=== PATIENT | female | born 1960 | race Caucasian/White ===

== ENCOUNTER 2024-11-28 15:15 | Inpatient (IN) | payer MEDICARE, SELFPAY ==
--- NOTE | 2024-11-28 15:15 | RT.EKG_ITS ---
APPROVED REPORT Exam: Resting ECG Reason for Exam: aphagia Patient Location: E HR:57 bpm ECG Measurements Heart Rate 57 AXIS [place] 123 P 50 QRSd 93 QRS -61 QT 431 T 71 QTc 419 Conclusion Sinus bradycardia, rate 57 No interval abnormalities No STEMI
[2024-11-28 15:16] VITALS: BP 147/83; PULSE 60; RESP 16; TEMP 36.5; O2SAT 97
--- NOTE | 2024-11-28 15:45 | DI.CT_ITS ---
Exam(s) CT THORACIC LUMBAR SPINE WO EXAM: CT THORACIC LUMBAR SPINE WO CLINICAL HISTORY: Back pain, eval fractures. TECHNIQUE: Imaging Protocol: Axial computed tomography images with coronal and sagittal reformatted images were created and reviewed. COMPARISON: No exams were available for comparison FINDINGS: Bones: No fractures or dislocations are seen. The alignment of the spine is normal including the cerv icothoracic junction and the thoracolumbar junction. There is L5 spondylolysis and grade 1 spondylol isthesis of L5 on S1. Soft tissues: The soft tissues are unremarkable. No large disk herniations are identified. Atheroscle rotic calcification is seen of the is abdominal aorta. IMPRESSION: No acute fracture or subluxation in the thoracic or lumbar spine. RADIATION DOSE DELIVERED: 1,141.91mGy.cm Total DLP DATA REPOSITORY: All CT scans at this facility are submitted to the National Radiology Data Registry (NRDR) Dose Index Registry (DIR) with the [employer] (ACR). RADIATION OPTIMIZATION: All CT scans at this facility use at least one of these dose optimization te chniques: automated exposure control; mA and/or kV adjustment per patient size (includes targeted exa ms where dose is matched to clinical indication); or iterative reconstruction.
--- NOTE | 2024-11-28 15:51 | ED.GENADUL_ITS ---
Discharge Plan Discharge Details Chief Complaint: GenMedical Primary Care Provider: Unknown,Unknown ED Provider: Adrienne Hilton Home Meds and New Rx's Prescriptions: No Action metoprolol succinate 25 mg tablet extended release 24 hr 25 mg PO BID Patient Comments: 1/2 Tab twice a day Eliquis 5 mg tablet 5 mg PO BID esomeprazole magnesium [Nexium] 40 mg capsule,delayed release(DR/EC) 40 mg PO DAILY atorvastatin 10 mg tablet 10 mg PO DAILY alprazolam 0.25 mg tablet 0.25 mg PO BID cholecalciferol (vitamin D3) [Vitamin D3] 125 mcg (5,000 unit) tablet 5,000 unit PO ONCE cyanocobalamin (vitamin B-12) [Vitamin B-12] 1,000 mcg tablet 1,000 mcg PO DAILY calcium citrate 200 mg (950 mg) tablet 200 mg PO DAILY coenzyme Q10 [Co Q-10] 10 mg capsule 10 mg PO ONCE silvestre (Zingiber officinalis) 250 mg capsule 250 mg PO DAILY albuterol 90 mcg/actuation aerosol inhalation PRN fexofenadine [Carlyn Allergy] 60 mg tablet 60 mg PO ONCE HPI General Mode of arrival: ambulatory . Date/Time Provider Initiated Documentation: 11/28/24 15:21 . Limitations to Documentation: no limitations . Information obtained by: patient, family and old records reviewed . HPI Narrative: HPI: This is a 64-year-old female patient with a past medical history significant for atrial fibrillation on Eliquis, history of remote DVT, hypertension, osteoporosis, who recently moved here from [place] who is presenting for evaluation of several weeks of progressively worsening right arm and leg numbness. The patient reports that initially it was just her hand and her foot that went numb, states that she thought that she pinched a nerve due to moving all of her belongings. She reports that she has not sustained any specific falls or injuries, but definitely has been lifting and exerting herself more than typical. Over the last 7 to 8 days she has noted gradually worsening numbness, which spread up her arm and leg into her shoulder and hip. She reports that she has been trying to manage the symptoms with stretching, does have some discomfort located in the center of her mid back, has not noted any fevers or illness. She reports intermittent dull headache, has some baseline dry eye and eyestrain type vision changes that have not changed in the last several weeks. Endorses baseline hearing dysfunction of the left ear, no acute changes to the right ear. The patient has no personal history of heart attack, stroke. Exam: Gen: awake and alert, in no apparent distress. Appears well nourished. HEENT: PERRL, EOMs full and without nystagmus. External ears and nose normal, mucous membranes moist. Neck: Supple, full range of motion, no observable masses Lungs: No increased work of breathing, lung sounds clear and equal bilaterally without wheezes, rhonchi, or rales. CV: Heart with regular rate and rhythm, no murmurs auscultated. Strong and symmetrical radial pulses. Abdomen: Soft, nondistended, non-tended to palpation. No rigidity, rebound tenderness, or guarding. MSK: No joint swelling, no redness. Full ROM without limitation, no external traumatic findings. Skin: No rashes or lesions to visualized skin. Normal color, warm, and dry. Neuro: Cranial nerves II-XII intact and symmetrical bilaterally with the exception of some change in sensation perception to the V1 and V2 distribution without full sensory loss. 5/5 strength in all muscle groups x4 extremities. Tingling and decreased sensation to the right upper and right lower extremity. Romberg negative. Ambulates with steady gait. Psych: Appropriate for situation. MDM: This is a 64-year-old female patient presenting for evaluation of right sided numbness for the last several weeks. My differential includes but is not limited to stroke, intracranial hemorrhage, vascular dissection or aneurysm, compression fracture of the spine, spinal nerve root compression. Considered metabolic and electrolyte derangements, kidney injury and liver disease. The patient's EKG shows that she is currently in a normal sinus rhythm with a rate of 57, with no evidence for ischemia. The patient is well outside of the window for activation as a stroke alert, and furthermore does not meet criteria for tPA administration given her Eliquis use. We will proceed with CTA of the head and neck to evaluate for neurologic or vascular abnormalities, as well as a CT of her T and L-spine to evaluate for f racture. I will obtain laboratory studies to include CBC, CMP, magnesium, troponin, and INR. ED Course: I independently interpreted the laboratory studies, which show no significant leukocytosis, anemia, or thrombocytopenia. The chemistry panel is without evidence of electrolyte abnormality, kidney dysfunction, or liver injury. INR 1.0, troponin negative. Independently reviewed the patient's CT imaging and discussed the findings with the radiologist. She has a 2 cm mass at the level of the left cerebellar tentorium, with associated mass effect. Radiologist reports that this is likely a meningioma, but cannot confirm that it is extra-axial without MRI. She has no evidence for infarct, vascular abnormality, anterior CT of her back shows no compression fractures or other abnormality. These findings were shared with the patient, and I discussed the case with [facility] neurosurgery. They recommend transfer to their facility for further workup and management. [facility], [facility] and so she will be admitted to our hospitalist service and transferred in the morning. I provided her with a initial 10 mg Decadron dose, and obtained a chest abdomen pelvis CT for malignancy workup. Neurosurgery recommended holding her Eliquis, which I feel was a low risk intervention given that she is not currently in atrial fibrillation. The patient remained hemodynamically appropriate was transferred to the hospitalist care without incident. Adrienne Hilton MD Related Data Home Medications ?Medication ?Instructions ?Recorded ?Confirmed albuterol 90 mcg/actuation aerosol mcg inhalation PRN 11/28/24 inhaler alprazolam 0.25 mg tablet 0.25 mg PO BID 11/28/24 11/28/24 apixaban 5 mg tablet (Eliquis) 5 mg PO BID 11/28/24 11/28/24 atorvastatin 10 mg tablet 10 mg PO DAILY 11/28/24 11/28/24 calcium citrate 200 mg PO DAILY 11/28/24 11/28/24 cholecalciferol (vitamin D3) 125 5,000 unit PO ONCE 11/28/24 11/28/24 mcg (5,000 unit) tablet (Vitamin D3) coenzyme Q10 10 mg capsule (Co 10 mg PO ONCE 11/28/24 11/28/24 Q-10) cyanocobalamin (vitamin B-12) 1,000 mcg PO DAILY 11/28/24 11/28/24 1,000 mcg tablet (Vitamin B-12) esomeprazole magnesium 40 mg 40 mg PO DAILY 11/28/24 11/28/24 capsule,delayed release (Nexium) fexofenadine 60 mg tablet (Carlyn 60 mg PO ONCE 11/28/24 11/28/24 Allergy) silvestre (Zingiber officinalis) 250 250 mg PO DAILY 11/28/24 11/28/24 mg capsule metoprolol succinate 25 mg 25 mg PO BID 11/28/24 11/28/24 tablet,extended release 24 hr Allergies Allergy/AdvReac Type Severity Reaction Status Date / Time morphine AdvReac Intermediate Other (See Verified 11/28/24 16:23 Comment) penicillin V (From Pen-Vee K) AdvReac Intermediate Other (See Verified 11/28/24 16:23 Comment) General Stated Complaint: GenMedical BAKARI: 3 Course Vital Signs Vital signs: Vital Signs Temperature 36.5 C 11/28/24 15:16 Pulse 60 11/28/24 15:16 Respiratory Rate 16 11/28/24 15:16 Blood Pressure 147/83 H 11/28/24 15:16 Pulse Oximetry 97 11/28/24 15:16 Temperature 36.5 C 11/28/24 15:16 Temperature Source Oral 11/28/24 15:16 Pulse 60 11/28/24 15:16 Respiratory Rate 16 11/28/24 15:16 Blood Pressure 147/83 H 11/28/24 15:16 Blood Pressure Position Sitting 11/28/24 15:16 Pulse Oximetry 97 11/28/24 15:16 Oxygen Delivery Method Room Air 11/28/24 15:16 Oxygen Flow Rate 0 11/28/24 15:16 Pain Level 5 11/28/24 15:16 Medical Decision Making Quality:SDOH Health Related Social Needs: No Data to Display PFSH Social History Smoking/Tobacco Use Status: Current-Occasional Tobacco Type: cigarettes Smoking risk assessment performed?: Yes Substance use type: does not use Housing: house
[2024-11-28 16:08] LABS: Abs Immature Grans 0.02 10^3/uL (0.0-0.06); Absolute Basophil Count 0.04 10^3/uL (0.0-0.2); Absolute Eosinophil Count 0.25 10^3/uL (0.0-0.7); Absolute Lymphocyte Count 3.41 10^3/uL (1.2-3.4); Absolute Monocyte Count 0.68 10^3/uL (0.1-0.8); Absolute Neutrophil Count 4.22 10^3/uL (1.2-6.7); Basophils % 0.5 %; Eosinophils % 2.9 %; HCT 43.5 % (36.0-46.0); HGB 14.4 g/dL (11.2-15.7); Immature Grans % 0.2 %; Lymphocytes % 39.6 %; MCH 29.4 pg (27.0-33.0); MCHC 33.1 % (32.0-36.0); MCV 89 fL (80-95); MPV 10.8 fL (8.0-11.0); Monocytes % 7.9 %; Neutrophils % 48.9 %; Platelet Count 277 10^3/uL (130-400); RDW 13.3 % (11.7-14.6); RDW-SD 43.6 fL; WBC 8.62 10^3/uL (4.4-10.8)
[2024-11-28 16:21] LABS: Prothrombin Time 10.5 sec (9.1-11.1)
[2024-11-28 16:29] LABS: ALT 25 U/L (14-59); AST 17 U/L (15-37); Albumin 3.9 g/dL (3.4-5.0); Alkaline Phosphatase 85 U/L (46-116); Anion Gap 7.2 mmol/L (3-11); BUN 17 mg/dL (7-18); Bilirubin, Total 0.24 mg/dL (0.2-1.0); CO2 29.8 mmol/L (21.0-32.0); CREATININE 1.2 mg/dL (0.55-1.02); Calcium 9.9 mg/dL (8.5-10.1); Chloride 107 mmol/L (98-107); Estimated GFR 49.92 (mL/min/1.73m2); Glucose 101 mg/dL (74-106); Potassium 4.1 mmol/L (3.5-5.1); Sodium 144 mmol/L (136-145); Total Protein 7.3 g/dL (6.4-8.2); Troponin I 7 ng/L (<or=51)
[2024-11-28 17:22] LABS: Troponin I 6 ng/L (<or=51)
[2024-11-28] MEDS: Normal Saline - Diluent 50 ML VIAL IJ ×2 (17:24→20:33)
[2024-11-28] MEDS: Omnipaque 350 MG/ML 100 ML BTL 70 ML IJ ×2 (17:28→20:34)
--- NOTE | 2024-11-28 17:48 | DI.CT_ITS ---
Exam(s) CT BRAIN NECK CTA EXAM: CT BRAIN NECK CTA CLINICAL HISTORY: R. arm and leg numbness x 2 weeks. TECHNIQUE: Imaging Protocol: Axial CT angiography was performed with multi-slice acquisition and mu lti-planar and/or 3D reconstructions. CONTRAST MATERIAL: Intravenous: Omnipaque 350 contrast volume:100 mL COMPARISON: There are no priors for comparison. FINDINGS: CT Head W/O and W: Ventricles and Extra axial spaces: Normal in size and morphology for the patient's age. Hemorrhage: None. Cerebral parenchyma: There is a hyperdense mass seen on the noncontrast examination along the right a spect of the midbrain and micah. There is a mass effect associated with this lesion on the micah. It is medially jet adjacent to the tentorium cerebelli. Following contrast administration there is near ly homogeneous enhancement of the mass. It is well-circumscribed. It measures 2.0 transverse by 2.2 cm AP by 2.4 cm cranio caudally. Primary diagnostic concern is for meningioma. But based on its ap pearance an intra-axial mass should be excluded. MRI is recommended for further evaluation. Midline shift: There is mild arm some mass effect on the cerebral aqueduct which does appear to be sl ightly displaced to the right. Brainstem/Cerebellum: Normal. Calvarium: Normal. Visualized Paranasal sinuses/Mastoids: Clear. Soft Tissues: Unremarkable. Enhancement: Please see the above discussion under cerebral parenchyma. CTA Neck W: Common Carotid: Right: No dissection, occlusion or significant stenosis. Left: No dissection, occlusion or significant stenosis. External Carotid: Right: No occlusion or significant stenosis. Left: No occlusion or significant stenosis. Internal Carotid: Right: No dissection, occlusion or significant stenosis. Left: No dissection, occlusion or significant stenosis. Vertebral Artery: Right: No dissection, occlusion or significant stenosis. Left: No dissection, occlusion or significant stenosis. Lung Apices: Mild emphysematous changes are seen in the lung apices. Bones: Within normal limits for the patient's age. Soft Tissues: Normal. Thyroid gland: Unremarkable. CTA Brain W: Internal Carotid Arteries: No evidence of aneurysm, occlusion or significant stenosis. Anterior Cerebral Arteries: Right: No aneurysm, occlusion or significant stenosis. Left: No aneurysm, occlusion or significant stenosis. Middle Cerebral Arteries: Right: No aneurysm, occlusion or significant stenosis. Left: No aneurysm, occlusion or significant stenosis. Posterior Cerebral Arteries: Right: No aneurysm, occlusion or significant stenosis. Left: No aneurysm, occlusion or significant stenosis. Vertebral Arteries: Right: No aneurysm, occlusion or significant stenosis. Left: No aneurysm, occlusion or significant stenosis. Basilar Artery: No aneurysm, occlusion or significant stenosis. IMPRESSION: 1. No large vessel occlusion or significant stenosis on the CT angiography of the head. 2. No acute intracranial process. 3. 2.0 x 2.2 x 2.4 cm hyperdense enhancing mass at the level of the left tentorium cerebelli. The ma sses well-circumscribed enhances. 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 An MR I, however, is recommended to exclude an intra-axial mass. 4. No occlusion or significant stenosis on the CT angiography of the neck. 5. Findings were discussed with Dr. Leigh at 6:10 p.m. on 11/28/2024. RADIATION DOSE DELIVERED: 1,908.92mGy.cm Total DLP DATA REPOSITORY: All CT scans at this facility are submitted to the National Radiology Data Registry (NRDR) Dose Index Registry (DIR) with the [employer] (ACR). RADIATION OPTIMIZATION: All CT scans at this facility use at least one of these dose optimization te chniques: automated exposure control; mA and/or kV adjustment per patient size (includes targeted exa ms where dose is matched to clinical indication); or iterative reconstruction.
[2024-11-28] MEDS: Dexamethasone 10 MG/ML VIAL IVP (19:35)
[2024-11-28 19:45] VITALS: BP 134/75; PULSE 60; RESP 16; O2SAT 100
--- NOTE | 2024-11-28 20:33 | DI.CT_ITS ---
Exam(s) CT CHEST/ABD/PEL W EXAM: CT CHEST/ABD/PEL W CLINICAL HISTORY: Malignancy eval, new brain mass identified. TECHNIQUE: Imaging Protocol: Axial computed tomography images with coronal and sagittal reformatted images were created and reviewed. Computer aided detection (CAD) was utilized. CONTRAST MATERIAL: Intravenous: Omnipaque 350 Contrast volume:100 ml Oral: no COMPARISON: No exams were available for comparison FINDINGS: CHEST: Tracheobronchial tree: Patent. Pulmonary parenchyma: No consolidation or dominant measurable mass. Minimal emphysematous changes no chel at the lung apices. 5 millimeter nodule anteromedial left lower lobe. Lungs are otherwise clear . Pleura: No effusion or pneumothorax. Mediastinum: Abnormally enlarged subcarinal lymph node measuring 1.6 x 2.1 cm. There is also a left superior hilar lymph node measuring 1.6 cm. Left inferior hilar lymph node measuring 1.3 x 1.8 cm Aorta: Thoracic portion non-dilated. Pulmonary arteries: No visible emboli. Heart: No pericardial effusion. Bones: Unremarkable for age. No lytic or blastic lesions.No compression fractures. Soft tissues: Unremarkable. ABDOMEN and PELVIS: Liver: Normal density. Tiny cyst. No suspicious mass. Gallbladder and biliary tract: No evidence of stones or wall thickening. No biliary dilatation. Pancreas: Normal density, no abnormal calcifications or inflammatory process. Spleen: Splenic cyst. Spleen is normal in size. Kidneys: Normal size, contour and axis. No radiodense stones. No obstructive uropathy. Right renal cysts. No suspicious masses seen. Adrenal glands: No masses seen. Aorta: Abdominal portion non-dilated. Lymph nodes: Within normal limits. Soft tissues: Unremarkable. Bladder: Unremarkable. Filled with contrast material. Bowel: No obstruction or bowel wall thickening. The appendix is normal. There is increased stool in the rectum. Moderate quantity of stool elsewhere. Peritoneal cavity: No ascites. No focal collection. No mesenteric inflammatory response. No free ai r. Bones: Transitional type vertebral body at the lumbosacral junction, with sacralization of L5. Bilat eral L4 pars defects are again noted with mild anterolisthesis. No suspicious bony lesions. Reproductive organs: Within normal limits. IMPRESSION: Left hilar and subcarinal adenopathy. Circumscribed 5 millimeter nodule medial left lower lobe. No suspicious mass identified. No significant abnormality is demonstrated in the abdomen or pelvis. No evidence of mass or adenopat hy. RADIATION DOSE DELIVERED: Total DLP DATA REPOSITORY: All CT scans at this facility are submitted to the National Radiology Data Registry (NRDR) Dose Index Registry (DIR) with the [employer] (ACR). RADIATION OPTIMIZATION: All CT scans at this facility use at least one of these dose optimization te chniques: automated exposure control; mA and/or kV adjustment per patient size (includes targeted exa ms where dose is matched to clinical indication); or iterative reconstruction.
[2024-11-28 21:37] VITALS: BP 143/60; PULSE 59; RESP 15; O2SAT 100
--- NOTE | 2024-11-28 21:54 | DI.VRAD_ITS ---
PROCEDURE INFORMATION: Exam: CT Chest With Contrast; Diagnostic Exam date and time: 11/28/2024 8:22 PM Age: 64 years old Clinical indication: Patient HX: Malignancy eval, new brain mass identified. Brain mass was identified today at approximately 1735hrs by CT scan. TECHNIQUE: Imaging protocol: Diagnostic computed tomography of the chest with contrast. 3D rendering (Not supervised by radiologist): MIP and/or 3D reconstructed images were created by the technologist. Contrast material: OMNIPAQUE 350; Contrast volume: 100 ml; Contrast route: INTRAVENOUS (IV); COMPARISON: CT BRAIN NECK CTA 11/28/2024 5:34 PM FINDINGS: Lungs: No suspicious pulmonary nodule or mass. No consolidation. Normal lung architecture. Pleural spaces: Unremarkable. No pneumothorax. No pleural effusion. Heart: No cardiomegaly. No pericardial effusion. No coronary artery calcifications. Lymph nodes: A subcarinal lymph node measures 1.6 x 2.1 cm. A left hilar lymph node measures 1.6 x 1.6 cm. A left peribronchial lymph node measures 1.3 x 1.8 cm. No axillary lymphadenopathy. No supraclavicular lymphadenopathy. Vasculature: No aortic dissection. No aneurysm. Mild plaque. Bones/joints: No compression fractures. No lytic or sclerotic bony lesion. Intact sternum. Unremarkable ribs. Soft tissues: No chest wall mass. IMPRESSION: 1. No acute findings. 2. Mediastinal lymphadenopathy. PROCEDURE INFORMATION: Exam: CT Abdomen And Pelvis With Contrast Exam date and time: 11/28/2024 8:22 PM Age: 64 years old Clinical indication: Patient HX: Malignancy eval, new brain mass identified. Brain mass was identified today at approximately 1735hrs by CT scan. TECHNIQUE: Imaging protocol: Computed tomography of the abdomen and pelvis with contrast. 3D rendering (Not supervised by radiologist): MIP and/or 3D reconstructed images were created by the technologist. Contrast material: OMNIPAQUE 350; Contrast volume: 100 ml; Contrast route: INTRAVENOUS (IV); COMPARISON: CT THORACIC LUMBAR SPINE WO 11/28/2024 5:27 PM FINDINGS: Lungs: Please see CT chest dictated separately. Liver: Homogeneous liver parenchyma. No suspicious mass. Small low-attenuation structures in the liver are too small to characterize, largest 0.7 cm. Small cysts or hemangiomas are likely. Gallbladder and biliary ducts: Collapsed gallbladder. No inflammatory change. No ductal dilatation. Pancreas: No pancreatic inflammatory change. No focal enlargement. No ductal dilatation. Spleen: Normal. No splenomegaly. Adrenal glands: No adrenal mass or nodule. Kidneys and ureters: No renal mass. No hydronephrosis. Nondilated ureters. Stomach and bowel: Stomach is unremarkable. The small bowel is not dilated. There are no inflammatory changes of the terminal ileum. There are no inflammatory changes around the colon. Stool burden is mild-moderate. There are no focal areas of bowel wall distension observed. Appendix: Normal appendix. Intraperitoneal space: No free-fluid. No free air. No abscess. Vasculature: Moderate vascular calcifications. Negative for abdominal aortic aneurysm. No occlusion or stenosis of the superior mesenteric artery. Lymph nodes: No retroperitoneal or inguinal lymphadenopathy. Urinary bladder: No polypoid mass. No wall thickening. No diverticula. The bladder is filled with contrast. Reproductive: Unremarkable as visualized. Bones/joints: No compression fractures. No endplate erosion. No lytic or sclerotic bony lesions. Transitional lumbosacral anatomy noted. The transitional vertebra is considered L5, counting from the C7-T1 level. The 12th ribs are rudimentary. Bilateral pars defects are noted at L4. Anterolisthesis of L4 on L5 measures 5 mm. The L5-S1 disc space is rudimentary and fuse. The sacroiliac joints and symphysis pubis are normal. The hips are unremarkable. Soft tissues: No abdominal wall hernia. No abdominal hematoma. IMPRESSION: 1. No acute findings. 2. No evidence of malignancy in the abdomen/pelvis. 3. L4 spondylolysis with grade 1 spondylolisthesis at L4-L5. Dictated and Authenticated by: Johnathan Isaac MD. Ordering:VANESSA Beck MD
[2024-11-28 22:40] VITALS: BP 140/78; PULSE 75; RESP 18; TEMP 37.2; O2SAT 98
--- NOTE | 2024-11-28 22:42 | W.PM.HP.N ---
Date of service: 11/28/24 Time of Service: 21:45 Assessment and Plan Assessment and plan (1) Brain mass: Status: Acute Assessment and plan: This is the apparent cause of her sensory abnormalities. Imaging suggests meningioma but we need MRI to definitively say. Neurosurgery consulted and Dr. Goodson accepted the patient to their service pending a bed. Will admit here overnight. Dexamethasone started with 10mg bolus, will continue 4mg every 6 hours until transfer, on PPI with h/o GERD No clear source of malignancy on imaging of neck/chest/abd/pelvis. (2) Crohn disease: Assessment and plan: Not grossly active per patient. (3) Paroxysmal atrial fibrillation: Status: Acute Assessment and plan: holding apixaban, continue low dose metoprolol for rate control (4) Smoker: Status: Acute Assessment and plan: she has cut back and is trying to quit, declines NRT for now (5) Anxiety: Assessment and plan: continue outpatient alprazolam low dose (6) DVT prophylaxis: Status: Acute Assessment and plan: with possible surgery, TEDs/SCDs History of Present Illness History of Present Illness Chief Complaint: right sided numbness Narrative: 64 yo F with history of atrial fibrillation on apixaban, hyperlipidemia, crohn disease in remission who recently moved from [place] who is presenting with 3 or so weeks of progressive numbness on her right side. It started in her right foot in late October. At first she thought it was sciatica. It then spread to her fingertips and hand. In the past week it has involved her whole right leg and arm, and finally in the past couple of days the right side of her face. This is what finally brought her into the emergency room. She has not had headache or focal weakness. The numbness is not complete, she can still feel things, but it feels like her leg/arm is tingly like it is asleep on that side. She has never had this in the past. She has not had vision changes, gait or balance abnormalities, swallowing or speech difficulty, nausea, mood changes, or abnormal movements. She reports regular care in [place], including mamograms yearly and regular CTs of chest to follow a nodule, which isn't growing per her doctors. Her last colonoscopy was over 5 years ago, but she has had many of them. She did a cologuard in the fall of 2023 that was positive, but she was having diarrhea at the time so she didn't think it was a true positive. 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, resolved on its own Gastrointestinal Gastrointestinal: Denies abdominal pain, Denies melena and Denies hematochezia Comments: crohns not active Musculoskeletal Musculoskeletal: Reports arthralgias (some chronic pain in hands, nothing new) and Denies joint swelling Neurologic Neurologic: Denies loss of vision Endocrine Endocrine: Denies fatigue PFSH All Active Problems (Updated 11/28/24 @ 23:55 by Tomas Gil) GERD (gastroesophageal reflux disease) (Chronic) Smoker (Acute) DVT prophylaxis (Acute) Brain mass (Acute) Lung nodule (Acute) Paroxysmal atrial fibrillation (Acute) Medical History (Updated 11/28/24 @ 23:55 by Tomas Gil) Hyperlipidemia Anxiety 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, negative MRI per patient Crohn disease states manages with silvestre, not active Surgical History (Updated 11/28/24 @ 23:34 by Tomas Gil) S/P lumpectomy, left breast fatty tumors per patient S/P tonsillectomy H/O section Family History (Updated 11/28/24 @ 23:57 by Tomas Gil) Sister Cancer Maternal Grandmother Cancer Paternal Grandfather Cancer Social History (Updated 11/28/24 @ 23:57 by Tomas Gil) Smoking/Tobacco Use Status: Current-Occasional Tobacco Type: cigarettes Tobacco: How many years used: 50 Quit status: considering quitting Counseling given: provider counseling and counseling >3 minutes Smoking risk assessment performed?: Yes Alcohol Intake: never Drug use: Never Substance use type: does not use Housing: house Pets and animals: Yes (2 dogs) Additional Social history: Moved from [facility] to [facility] in 11/04 to live near daughter in [place]. in 2023. Meds Allergies and Home Medications Allergies Allergy/AdvReac Type Severity Reaction Status Date / Time morphine AdvReac Intermediate Other (See Verified 11/28/24 16:23 Comment) penicillin V (From Pen-Vee K) AdvReac Intermediate Other (See Verified 11/28/24 16:23 Comment) Home Medications ?Medication ?Instructions ?Recorded ?Confirmed ?Type albuterol 90 mcg/actuation aerosol mcg inhalation PRN 11/28/24 History inhaler alprazolam 0.25 mg tablet 0.25 mg PO BID 11/28/24 11/28/24 History apixaban 5 mg tablet (Eliquis) 5 mg PO BID 11/28/24 11/28/24 History atorvastatin 10 mg tablet 10 mg PO DAILY 11/28/24 11/28/24 History calcium citrate 200 mg PO DAILY 11/28/24 11/28/24 History cholecalciferol (vitamin D3) 125 5,000 unit PO ONCE 11/28/24 11/28/24 History mcg (5,000 unit) tablet (Vitamin D3) coenzyme Q10 10 mg capsule (Co 10 mg PO ONCE 11/28/24 11/28/24 History Q-10) cyanocobalamin (vitamin B-12) 1,000 mcg PO DAILY 11/28/24 11/28/24 History 1,000 mcg tablet (Vitamin B-12) esomeprazole magnesium 40 mg 40 mg PO DAILY 11/28/24 11/28/24 History capsule,delayed release (Nexium) fexofenadine 60 mg tablet (Carlyn 60 mg PO ONCE 11/28/24 11/28/24 History Allergy) silvestre (Zingiber officinalis) 250 250 mg PO DAILY 11/28/24 11/28/24 History mg capsule metoprolol succinate 25 mg 25 mg PO BID 11/28/24 11/28/24 History tablet,extended release 24 hr Exam Narrative Exam Narrative: GEN: Alert and oriented x 4, pleasant and cooperative, gives linear history. No acute distress at rest. HEENT: Head atraumatic. Conjunctiva clear, no icterus. PEERL, EOMI. no rhinorrhea. MMM, OP benign edentulous. Neck is supple with no masses or lymphadenopathy, trachea midline LUNGS: CTAB with normal effort CV: RRR with no murmurs, gallops, or rubs. ABD: active bowel sounds, soft, nontender and nondistended. No masses. EXT: no cyanosis, clubbing, or edema MSK: No joint redness or swelling NEURO: CN 2-12 intact except left hearing and abnormal senstation right face. Normal movement and 5/5 strength of 4 extremities. Diminished sensation right hand/leg. Negative pronator drift. Normal FNF. Normal speech. Normal gait. No tremor SKIN: No rashes or open wounds. PSYCH: normal mood and affect, normal thought process Results Imaging Abdomen CT scan report/results: report reviewed (1. No acute findings. 2. No evidence of malignancy in the abdomen/pelvis. 3. L4 spondylolysis with grade 1 spondylolisthesis at L4-L5. ) CT scan - chest: report reviewed ((with contrast) 1. No acute findings. 2. Mediastinal lymphadenopathy. ) EKG: report reviewed and image reviewed (sinus bradycardia 57, left axis, nl intervals, no ST-T abnormalities. ) Imaging Studies: CTA Head/neck: 1. No large vessel occlusion or significant stenosis on the CT angiography of the head. 2. No acute intracranial process. 3. 2.0 x 2.2 x 2.4 cm hyperdense enhancing mass at the level of the left tentorium cerebelli. The masses well-circumscribed enhances. 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 An MRI, however, is recommended to exclude an intra-axial mass. 4. No occlusion or significant stenosis on the CT angiography of the neck. CT thoracic/lumbar: No acute fracture or subluxation in the thoracic or lumbar spine. Labs 11/28/24 15:55 11/28/24 15:55 Labs: Laboratory Results - last 24 hr 11/28/24 11/28/24 11/28/24 15:55 16:58 18:47 WBC 8.62 RBC 4.90 Hgb 14.4 Hct 43.5 MCV 89 MCH 29.4 MCHC 33.1 RDW 13.3 Plt Count 277 MPV 10.8 Immature Gran % 0.2 Neutrophils % 48.9 Lymphocytes % 39.6 Monocytes % 7.9 Eosinophils % 2.9 Basophils % 0.5 Nucleated RBC % 0.0 Absolute Neutrophils 4.22 Absolute Lymphocytes 3.41 H Absolute Monocytes 0.68 Absolute Eosinophils 0.25 Absolute Basophils 0.04 PT 10.5 INR 1.0 Sodium 144 Potassium 4.1 Chloride 107 Carbon Dioxide 29.8 Anion Gap 7.2 BUN 17 Creatinine 1.2 H Est GFR (CKD-EPI 2020) 49.92 Glucose 101 Calcium 9.9 Magnesium 2.0 Total Bilirubin 0.24 AST 17 ALT 25 Alkaline Phosphatase 85 Troponin I 7 6 Cancelled Total Protein 7.3 Albumin 3.9 Last Vital Signs Temp 36.5 C 11/28/24 15:16 Pulse 59 L 11/28/24 21:37 Resp 15 11/28/24 21:37 BP 143/60 H 11/28/24 21:37 Pulse Ox 100 11/28/24 21:37 PAWSS Have you Been Recently Intoxicated or Drunk Within the Last 30 days?: No Have you Ever Experienced Previous Episodes of Alcohol Withdrawal?: No Have you ever Experienced Withdrawal Seizures?: No Have you ever Experienced Delirium Tremens(DT)s?: No Have you ever undergone Alcohol Rehabilitation Treatment (i.e, inpt ot outpatient treatment programs)?: No Have you ever Experienced Blackouts?: No Have you ever Combined Alcohol with other Downers within the last 90 days?: No Have you ever Combined Alcohol with any other Substance of Abuse during the last 90 days?: No Positive Blood Alcohol level on Presentation? [PCS.BAL]: No Evidence of Increased Autonomic Activity (i.e. HR>120, tremor, sweating, agitation, nausea)?: No Result: 0 Time Spent Time spent with Patient: 55-74 minutes Time was spent: preparing to see the patient(eg.review tests), obtaining and/or reviewing separately otained hiistory, ordering medications,tests, procedures, referring, communicating with other health hearing care practitioner, indepentently interpreting results, counseling the patient and care coordination
--- NOTE | 2024-11-28 23:34 | W.PC.ACHO ---
Registration Status: Primary Language: Preferred Language: ED Information & Data Chief Complaint GenMedical 11/28/24 16:04 Chief Complaint GenMedical 11/28/24 15:54 Triage Note numbness started in right 11/28/24 15:16 foot 2 weeks ago but has been getting worse. now up to thigh and arm. hx HTN and blood clot. takes eliquis. hx sciatica which she has a gabapentin rx for but has not taken any. denies other otc medications. Most Recent Vital Signs Temperature 37.2 C 11/28/24 22:40 Temperature Source Oral 11/28/24 15:16 Pulse 75 11/28/24 22:40 Pulse Rhythm Regular 11/28/24 22:40 Pulse Strength Normal 11/28/24 21:37 Respiratory Rate 18 11/28/24 22:40 Respiratory Effort Normal, Non-Labored 11/28/24 22:40 Respiratory Depth Normal 11/28/24 22:40 Respiratory Pattern Normal 11/28/24 22:40 Blood Pressure 140/78 11/28/24 22:40 Blood Pressure Mean 87 11/28/24 21:37 Blood Pressure Position Sitting 11/28/24 21:37 Pulse Oximetry 98 11/28/24 22:40 Oxygen Delivery Method Room Air 11/28/24 22:40 Oxygen Flow Rate 0 11/28/24 22:40 Pain Level 3 11/28/24 22:40 Allergies morphine Adverse Reaction (Intermediate, Verified 11/28/24 16:23) Other (See Comment) vomiting penicillin V (From Pen-Vee K) Adverse Reaction (Intermediate, Verified 11/28/24 16:23) Other (See Comment) intestinal cramping Precautions Isolation Standard precaution 11/28/24 16:04 Active Medications Generic Name Dose Route Start Last Admin Trade Name Juan Ramonq PRN Reason Stop Dose Admin Iohexol 70 ml 11/28/24 17:30 11/28/24 20:34 Omnipaque 350 Mg/Ml 100 Ml Btl IJ 12/28/24 23:59 100 ml DIRECTED ABHINAV Administration Sodium Chloride 50 ml 11/28/24 17:30 11/28/24 20:33 Normal Saline - Diluent 50 Ml Vial IJ 50 ml .FOR DI USE ABHINAV Administration IV IV Catheter Type [Right Peripheral IV Antecubital] IV Catheter Gauge [Right 18 Antecubital] Diet Orders Category Date Time Status Regular/Normal [DIET] Nutrition 11/29/24 Breakfast Ordered Diagnostics 11/28/24 11/28/24 11/28/24 Range/Units 18:47 16:58 15:55 WBC 8.62 (4.4-10.8) 10^3/uL RBC 4.90 (3.93-5.22) 10^6/uL Hgb 14.4 (11.2-15.7) g/dL Hct 43.5 (36.0-46.0) % MCV 89 (80-95) fL MCH 29.4 (27.0-33.0) pg MCHC 33.1 (32.0-36.0) % RDW 13.3 (11.7-14.6) % Plt Count 277 (130-400) 10^3/uL MPV 10.8 (8.0-11.0) fL Immature Gran % 0.2 % Neutrophils % 48.9 % Lymphocytes % 39.6 % Monocytes % 7.9 % Eosinophils % 2.9 % Basophils % 0.5 % Nucleated RBC % 0.0 (0.0-0.3) % Absolute Neutrophils 4.22 (1.2-6.7) 10^3/uL Absolute Lymphocytes 3.41 H (1.2-3.4) 10^3/uL Absolute Monocytes 0.68 (0.1-0.8) 10^3/uL Absolute Eosinophils 0.25 (0.0-0.7) 10^3/uL Absolute Basophils 0.04 (0.0-0.2) 10^3/uL PT 10.5 (9.1-11.1) sec INR 1.0 (0.9-1.1) Sodium 144 (136-145) mmol/L Potassium 4.1 (3.5-5.1) mmol/L Chloride 107 (98-107) mmol/L Carbon Dioxide 29.8 (21.0-32.0) mmol/L Anion Gap 7.2 (3-11) mmol/L BUN 17 (7-18) mg/dL Creatinine 1.2 H (0.55-1.02) mg/dL Est GFR (CKD-EPI 2020) 49.92 (mL/min/1.73m2) Glucose 101 (74-106) mg/dL Calcium 9.9 (8.5-10.1) mg/dL Magnesium 2.0 (1.8-2.4) mg/dL Total Bilirubin 0.24 (0.2-1.0) mg/dL AST 17 (15-37) U/L ALT 25 (14-59) U/L Alkaline Phosphatase 85 (46-116) U/L Troponin I Cancelled 6 7 (<or=51) ng/L Total Protein 7.3 (6.4-8.2) g/dL Albumin 3.9 (3.4-5.0) g/dL Intake and Output - 24 Hour Total 11/28/24 15:15 thru 11/28/24 23:30 Output Total 300 Balance -300 Weight 61.6 kg Output: Urine 300 Other: Urine Color Yellow Urine Appearance Clear Urine Odor None Falls Risk Assessment History of Falls No History 11/28/24 22:40 Contributing Factors Impairments 11/28/24 22:40 Ambulatory Aids Independent 11/28/24 22:40 Tubes/Lines With any additional score 11/28/24 22:40 Gait Evaluation No gait disturbance 11/28/24 22:40 Cognition No cognitive impairment 11/28/24 16:04 Fall Total Score 23 11/28/24 22:40 Level of Risk Standard/Low Risk 11/28/24 22:40 v v v v v v v v v Sending and/or Receiving Nurses: Please use comment section below to note any information pertinent to the patient hand-off not included above. Information / Comments: pt in for 3wks of progressive right sided weakness/numbness/tingling. CT shows new mass in brain. pt to be transferred to [facility] for further workup tomorrow. Report received from: Tamara Morgan RN
[2024-11-28] MEDS: Normal Saline Flush 10 ML SYR IVP (23:51)
[2024-11-29] MEDS: Dexamethasone 4 MG/ML VIAL IVP ×3 (01:38→14:34)
[2024-11-29 07:16] VITALS: BP 114/73; PULSE 78; RESP 16; TEMP 35.9; O2SAT 98
[2024-11-29 07:25] LABS: Anion Gap 11.8 mmol/L (3-11); BUN 19 mg/dL (7-18); CO2 23.2 mmol/L (21.0-32.0); CREATININE 1.2 mg/dL (0.55-1.02); Calcium 9.2 mg/dL (8.5-10.1); Chloride 106 mmol/L (98-107); Estimated GFR 49.92 (mL/min/1.73m2); Glucose 166 mg/dL (74-106); Potassium 4.1 mmol/L (3.5-5.1); Sodium 141 mmol/L (136-145)
[2024-11-29] MEDS: Esomeprazole 40 MG CAPCR PO (08:22)
[2024-11-29] MEDS: Cyanocobalamin 500 MCG TAB 1000 MCG PO (08:22)
[2024-11-29] MEDS: Calcium Citrate 950 MG TAB PO (08:22)
[2024-11-29] MEDS: Metoprolol CR 25 MG TABCR PO (08:22)
[2024-11-29] MEDS: Cholecalciferol (Vitamin D3) 1,000 UNIT TAB 5000 UNITS PO (08:22)
[2024-11-29] MEDS: Normal Saline Flush 10 ML SYR IVP (08:23)
[2024-11-29] MEDS: ALPRAZolam 0.25 MG TAB PO ×2 (08:23→19:03)
--- NOTE | 2024-11-29 13:40 | PHACLINREV_ITS ---
Pharmacy Admission Review Admission Clinical Review Admission Pharmacy Review: Smoker (Acute) DVT prophylaxis (Acute) Brain mass (Acute) Paroxysmal atrial fibrillation (Acute) morphine Adverse Reaction (Intermediate, Verified 11/28/24 16:23) Other (See Comment) penicillin V (From Pen-Vee K) Adverse Reaction (Intermediate, Verified 11/28/24 16:23) Other (See Comment) Resuscitation Status Full Code Height 5 ft 1 in Weight 61.6 kg Comments Comments/Follow Ups: Waiting on transfer to [facility] Pharmacy Admission Review Renal Dosing Renal Dosing: BUN 19 mg/dL (7-18) H 11/29/24 06:26 Creatinine 1.2 mg/dL (0.55-1.02) H 11/29/24 06:26 Medications needing adjustments: Reviewed (CrCl 38.76 mL/min, BUN increased from 17) List of meds needing interventions: Current medications are okay Anticoagulation Anticoagulation: Hgb 14.4 g/dL (11.2-15.7) 11/28/24 15:55 Hct 43.5 % (36.0-46.0) 11/28/24 15:55 Plt Count 277 10^3/uL (130-400) 11/28/24 15:55 INR 1.0 (0.9-1.1) 11/28/24 15:55 Creatinine 1.2 mg/dL (0.55-1.02) H 11/29/24 06:26 DVT Prophylaxis: Reviewed (SCDs/TEDs - possible surgery per H+P) Relevant Labs Relevant Labs: Sodium 141 mmol/L (136-145) 11/29/24 06:26 Potassium 4.1 mmol/L (3.5-5.1) 11/29/24 06:26 Chloride 106 mmol/L (98-107) 11/29/24 06:26 Magnesium 2.0 mg/dL (1.8-2.4) 11/28/24 15:55 Electrolytes, C-Reactive P, ESR: Reviewed Cardiac Review Cardiac Review: Troponin I Cancelled 11/28/24 18:47 BP, HR, EF%: Reviewed (HR and BP WNL) List meds needing interventions: Has order for metoprolol 25mg XL BID QTc Review QTc: Reviewed (419 from 11/28/24) IV to PO Switch IV Medications: Reviewed (dexamethasone) Home Meds Home Med List reviewed: Intervened Relevent Home Meds Not ordered & why?: Marifer (on hold per H+P) Changed the following to patients own orders (non-formulary): fexofenadine, CoQ10 and silvestre. Patient will need to have brought in if they want to take these while inpatient. Current Meds Current Medication Order Review: Intervened Comments: Changed ED IV accesss Comments Comments/Follow Ups: Waiting on transfer to [facility]
[2024-11-29 15:02] VITALS: BP 106/72; PULSE 79; RESP 16; TEMP 36.8; O2SAT 98
--- NOTE | 2024-11-29 17:37 | DSE_ITS ---
Date of service: 11/29/24 Time of Service: 17:37 DS: Diagnosis Discharge Diagnosis (1) Brain mass: Status: Acute (2) Crohn disease: (3) Paroxysmal atrial fibrillation: Status: Acute (4) Smoker: Status: Acute (5) Anxiety: (6) DVT prophylaxis: Status: Acute Discharge Plan Disposition Patient Disposition: Transfer-Acute Inpatient Care Specific Acute Inpt Facility: [facility] Condition: Good Discharge Details Reason For Visit: Brain Tumor Admit Date/Time: 11/28/24 21:12 Admit Provider: Tomas Gil Attending Provider: Tomas Gil Primary Care Provider: Unknown,Unknown Hospital Course Hospital Course: Patient initially presented to the hospital with 3 weeks of right sided numbness starting in her foot back in October initially thought to have been sciatica. 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 While in the emergency department [facility] neurosurgery was consulted and accepted patient for transfer though no beds were available at the time. Patient remai verito on MedSurg without any acute changes and was determined to be stable for transfer to the CV surgery service. Home Meds and New Rx's Prescriptions: No Action metoprolol succinate 25 mg tablet extended release 24 hr 25 mg PO BID Patient Comments: 1/2 Tab twice a day Eliquis 5 mg tablet 5 mg PO BID esomeprazole magnesium [Nexium] 40 mg capsule,delayed release(DR/EC) 40 mg PO DAILY atorvastatin 10 mg tablet 10 mg PO DAILY alprazolam 0.25 mg tablet 0.25 mg PO BID cholecalciferol (vitamin D3) [Vitamin D3] 125 mcg (5,000 unit) tablet 5,000 unit PO ONCE cyanocobalamin (vitamin B-12) [Vitamin B-12] 1,000 mcg tablet 1,000 mcg PO DAILY calcium citrate 200 mg (950 mg) tablet 200 mg PO DAILY coenzyme Q10 [Co Q-10] 10 mg capsule 10 mg PO ONCE silvestre (Zingiber officinalis) 250 mg capsule 250 mg PO DAILY albuterol 90 mcg/actuation aerosol inhalation PRN fexofenadine [Carlyn Allergy] 60 mg tablet 60 mg PO ONCE Discharge Instructions Activity:: Activity as Tolerated Equipment/Supplies:: No Equipment Needed Diet:: As Tolerated DS: Summary Time Spent with Patient providing and/or coordinating discharge services: Greater than 30 minutes Status at Discharge Functional status at discharge: independent ambulation Overall status at discharge: patient is back to baseline Mental Status: mental status grossly normal Speech and Movement: speech and movement normal Mood: congruent mood Affect: normal affect Quality:SDOH Health Related Social Needs: Health related social needs food insecurity (Z59.41), material hardship(utilities) (Z59.12), problems related to housing/economic circumstances (Z59.89), feeling lonely/isolated (Z60.8) Referrals and interventions: pt would like resources for NECKA and food shelves Exam Narrative Exam Narrative: Well-appearing older female sitting up in the edge of the bed no acute distress, ANO x 4, heart regular rhythm, lungs clear to auscultation bilaterally, abdomen soft, nontender, nondistended, cranials 2 through 12 intact, normal strength in bilateral upper and lower extremities, decreased sensation in right upper and l ower extremity Psych Mental Status: mental status grossly normal Speech and Movement: speech and movement normal Mood: congruent mood Affect: normal affect DS: Data Vitals/I&O Vitals and I&O: Vital Signs Temperature 98.2 F 11/29/24 15:02 Temperature Source Temporal Artery Scan 11/29/24 15:02 Pulse 79 11/29/24 15:02 Pulse Rhythm Regular 11/28/24 22:40 Pulse Strength Normal 11/28/24 21:37 Respiratory Rate 16 11/29/24 15:02 Respiratory Effort Normal, Non-Labored 11/28/24 22:40 Respiratory Depth Normal 11/28/24 22:40 Respiratory Pattern Normal 11/28/24 22:40 Blood Pressure 106/72 11/29/24 15:02 Blood Pressure Mean 87 11/28/24 21:37 Blood Pressure Position Sitting 11/28/24 21:37 Pulse Oximetry 98 11/29/24 15:02 Oxygen Delivery Method Room Air 11/29/24 15:02 Oxygen Flow Rate 0 11/29/24 15:02 Pain Level 0 11/29/24 15:02 Intake & Output 11/28/24 11/29/24 11/29/24 17:59 05:59 17:59 Intake Total Output Total 300 / 300 1500 / 1500 Balance -290 / -290 -1500 / -1500 Weight 147 lb 135 lb 12.876 oz Intake: IV Output: Urine 300 / 300 1500 / 1500 Other: Urine Color Yellow Urine Appearance Clear Clear Urine Odor None Data Completed and Pending Labs on day of discharge: Labs from last 24 hours 11/29/24 06:26 Sodium 141 Potassium 4.1 Chloride 106 Carbon Dioxide 23.2 Anion Gap 11.8 H BUN 19 H Creatinine 1.2 H Est GFR (CKD-EPI 2020) 49.92 Glucose 166 H Calcium 9.2 PFSH All Active Problems (Updated 11/28/24 @ 23:55 by Tomas Gil) GERD (gastroesophageal reflux disease) (Chronic) Smoker (Acute) DVT prophylaxis (Acute) Brain mass (Acute) Lung nodule (Acute) Paroxysmal atrial fibrillation (Acute) Medical History (Updated 11/28/24 @ 23:55 by Tomas Gil) Hyperlipidemia Anxiety 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, negative MRI per patient Crohn disease states manages with silvestre, not active Surgical History (Updated 11/28/24 @ 23:34 by Tomas Gil) S/P lumpectomy, left breast fatty tumors per patient S/P tonsillectomy H/O section Family History (Updated 11/28/24 @ 23:58 by Tomas Gil) Sister Cancer Maternal Grandmother Cancer Paternal Grandfather Cancer Social History (Updated 11/28/24 @ 23:57 by Tomas Gil) Smoking/Tobacco Use Status: Current-Occasional Tobacco Type: cigarettes Tobacco: How many years used: 50 Quit status: considering quitting Counseling given: provider counseling and counseling >3 minutes Smoking risk assessment performed?: Yes Alcohol Intake: never Drug use: Never Substance use type: does not use Housing: house Pets and animals: Yes (2 dogs) Additional Social history: Moved from [facility] to [facility] in 11/04 to live near daughter in [place]. in 2023. Time Spent with Patient Time Spent with Patient: <45 minutes Time was spent: preparing to see the patient(eg.review tests), obtaining and/or reviewing separately otained hiistory, ordering medications,tests, procedures, referring, communicating with other health health care legal assistant, indepentently interpreting results, counseling the patient and care coordination
--- NOTE | 2024-11-29 18:35 | INITIAL_ITS ---
Date of service: 11/29/24 Time of Service: 15:00 Care Management Initial Assmt Initial Assessment Reason for Hospitalization: Brain tumor Functional Status/Living Situation Patient Presentation: Jacqui presented to the ED yesterday afternoon with c/o several weeks of progressively worsening right arm and leg numbness. She thought it was from moving, getting her new house in order, and was trying to tx with stretching, but the numbness spread and she c/o some back discomfort. Unfortunately, Jacqui was found to have a brain mass. She was admitted to [facility] while awaiting transfer to a tertiary facility. Jacqui was sitting on the edge of the bed, with her daughter, Karen, when CM met with her. Depsite her news, Jacqui was very pleasant and easily engaged. She can not believe this is happening to her. She just moved from [place] a few months ago to be near her only daughter, and has not even established with a PCP yet. Jacqui had her records sent to [facility], and she has an appointment in April to establish care. Town of Residence: [facility] Resides with: Alone and Other (2 dogs) Significant Other/Family: Local (daughter, Karen, her , Elia, and their 3 children live in [place], [place]) Natural Supports: Family Employment Status: Retired Instrumental Activities of Daily Living (ADLs): Independent Advance Directives Advance Directives: Do you have an Advance Directive: N 11/28/24 15:28 AD On File at [facility]: N 11/28/24 15:28 Date Asked 11/28/24 11/28/24 15:28 AD Date Reviewed COLST On File at [facility] No 11/28/24 15:28 COLST Date Scanned Comment: AD paperwork given Code Status Resuscitation Status Full Code Insurance Coverage/Financial Issues Insurance: BC/BS [place] [facility] Ad[facility]age Care Team Visit Care Team Role Provider Type Unknown Unknown Primary Care Provider STAFF PHYSICIAN Adrienne Hilton MD Emergency Provider [facility] STAFF PHYSICIAN Tomas Gil Admit Provider [facility] STAFF PHYSICIAN Attending Provider Other: records are at [facility] Discharge Potential Discharge Needs: Other (tertiary hospital bed for further work up.) Anticipated Barriers to Discharge: Bed availability Patient/Family Education Needs: Review discharge instructions, discuss Ask Me Three Transportation: EMS (as coordinated by nursing pasteurizing supervisor) Plan: Jacqui will be transferred to [facility] this evening. Transport has been secured. Jacqui's daughter will follow the ambulance, and meet her there. Social Determinants of Health Screening Social Determinants of Health last assessed: 11/29/24 Will the Patient Participate in the Screening?: Yes Do you worry about having a steady place to live?: no Problems where you live: no known problems In the past 12 months, have you had to go without electric, gas, oil or water in your home?: yes Have you or anyone in your house had to go without enough food to eat?: yes 1. Within the past 12 months, we worried whether our food would run out before we got money to buy more.: Often true 2. Within the past 12 months, the food we bought just didn't last and we didn't have money to get more.: Often true Referred to:: Not Applicable Has lack of transportation kept you from medical appointments or from doing things needed for daily living?: no Has anyone in your life made you feel unsafe or unsupported?: yes How hard is it for you to pay for the very basics like food, housing, medical care, and heating? Would you say it is:: Somewhat hard Do you want help finding or keeping work or a job?: I do not need or want help If for any reason you need help with day-to-day activities such as bathing, preparing meals, shopping, managing finances, etc., do you get the help you need?: I don?t need any help How often do you feel lonely or isolated from those around you?: Sometimes Do you speak a language other than Japanese at home?: No Does the patient want assistance with any of the above?: No Social Determinants of Health Comments([facility] Details): pt recently moved to the area and her social/living situation has improved Health Related Social Needs Health related social needs: food insecurity (Z59.41), material zambrano rdship(utilities) (Z59.12), problems related to housing/economic circumstances (Z59.89) and feeling lonely/isolated (Z60.8) PFSH All Active Problems (Updated 11/28/24 @ 23:55 by Tomas Gil) GERD (gastroesophageal reflux disease) (Chronic) Smoker (Acute) DVT prophylaxis (Acute) Brain mass (Acute) Lung nodule (Acute) Paroxysmal atrial fibrillation (Acute) Medical History (Updated 11/28/24 @ 23:55 by Tomas Gil) Hyperlipidemia Anxiety 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, negative MRI per patient Crohn disease states manages with silvestre, not active Surgical History (Updated 11/28/24 @ 23:34 by Tomas Gil) S/P lumpectomy, left breast fatty tumors per patient S/P tonsillectomy H/O section Family History (Updated 11/28/24 @ 23:58 by Tomas Gil) Sister Cancer Maternal Grandmother Cancer Paternal Grandfather Cancer Social History (Updated 11/28/24 @ 23:57 by Toams Gil) Smoking/Tobacco Use Status: Current-Occasional Tobacco Type: cigarettes Tobacco: How many years used: 50 Quit status: considering quitting Counseling given: provider counseling and counseling >3 minutes Smoking risk assessment performed?: Yes Alcohol Intake: never Drug use: Never Substance use type: does not use Housing: house Pets and animals: Yes (2 dogs) Additional Social history: Moved from [facility] to [facility] in 11/04 to live near daughter in [place]. in 2023.
== END 2024-11-29 19:00 | disposition short-term general hospital (02) | DRG 55 ==
LOC: ER 22:24 → MS 22:35
PROVIDERS: Admitting Provider Family Medicine; Emergency Provider Emergency Medicine; Visit Provider Family Medicine
DX: D32.0 Benign neoplasm of cerebral meninges (principal); K50.90 Crohn's disease, unspecified, without complications; I48.0 Paroxysmal atrial fibrillation; F41.9 Anxiety disorder, unspecified; F17.210 Nicotine dependence, cigarettes, uncomplicated; Z79.01 Long term (current) use of anticoagulants; K21.9 Gastro-esophageal reflux disease without esophagitis; E78.5 Hyperlipidemia, unspecified; R20.2 Paresthesia of skin; R59.9 Enlarged lymph nodes, unspecified
CPT/HCPCS: 00123; 36415; 70496; 70498; 74177; 80048; 80053; 93005; 96374; 99285; 71260; 72128; 72131; 83735; 84484; 85025; 85610; 93010; 99223; 99239; J1100; J3490

== ENCOUNTER 2025-01-19 11:40 | Outpatient (CLI) | payer MEDICARE, SELFPAY ==
[2025-01-19 08:33] LABS: Abs Immature Grans 0.07 10^3/uL (0.0-0.06); Absolute Basophil Count 0.01 10^3/uL (0.0-0.2); Absolute Eosinophil Count 0.18 10^3/uL (0.0-0.7); Absolute Lymphocyte Count 2.31 10^3/uL (1.2-3.4); Absolute Monocyte Count 0.94 10^3/uL (0.1-0.8); Basophils % 0.1 %; Eosinophils % 1.6 %; HCT 38.7 % (36.0-46.0); Immature Grans % 0.6 %; Lymphocytes % 20.9 %; MCH 29.5 pg (27.0-33.0); MCHC 33.6 % (32.0-36.0); MCV 88 fL (80-95); MPV 9.6 fL (8.0-11.0); Monocytes % 8.5 %; Neutrophils % 68.3 %; Platelet Count 272 10^3/uL (130-400); RBC 4.41 10^6/uL (3.93-5.22); RDW 14.5 % (11.7-14.6); RDW-SD 46.7 fL; WBC 11.04 10^3/uL (4.4-10.8)
[2025-01-19 08:36] LABS: Absolute Neutrophil Count 7.54 10^3/uL (1.2-6.7)
[2025-01-19 09:03] LABS: ALT 32 U/L (14-59); AST 12 U/L (15-37); Albumin 3.2 g/dL (3.4-5.0); Alkaline Phosphatase 80 U/L (46-116); Anion Gap 8.7 mmol/L (3-11); BUN 32 mg/dL (7-18); Bilirubin, Total 0.4 mg/dL (0.2-1.0); CO2 26.3 mmol/L (21.0-32.0); CREATININE 1.2 mg/dL (0.55-1.02); Calcium 9.2 mg/dL (8.5-10.1); Chloride 104 mmol/L (98-107); Estimated GFR 49.92 (mL/min/1.73m2); Glucose 127 mg/dL (74-106); Magnesium 2.1 mg/dL (1.8-2.4); Potassium 4.1 mmol/L (3.5-5.1); Sodium 139 mmol/L (136-145); Total Protein 6.6 g/dL (6.4-8.2)
== END 2025-01-19 11:41 | disposition home or self-care (01) ==
PROVIDERS: Visit Provider Internal Medicine Medical Oncology
DX: C78.1 Secondary malignant neoplasm of mediastinum (principal)
CPT/HCPCS: 36415; 80053; 83735; 85025

== ENCOUNTER 2025-02-02 01:50 | Outpatient (CLI) | payer MEDICARE, SELFPAY ==
--- NOTE | 2025-02-02 | DI.MRI_ITS ---
Exam(s) MR BRAIN WO/W EXAM: MR BRAIN WO/W CLINICAL HISTORY: BRAIN CANCER C79.31 BRAINSTEM METS FROM LUNG CANCER S/P XRT EVAL INTERVAL TECHNIQUE: Multiplanar multisequence MRI of the brain was performed. Both noninfused and contrast i nfused sequences were performed. IV Contrast injected was 13 cc Dotarem. COMPARISON: CT CT BRAIN NECK CTA from 11/28/2024 FINDINGS: CEREBRAL PARENCHYMA: There is a peripherally and internally enhancing malignant-appearing lesion in t he left side of the micah and midbrain and left peduncle, this lesion measuring 2.3cm craniocaudal x 1 .3 cm maximum AP measurex 1.3 cm wide. This does not cross the midline. It approaches but does not exhibit significant mass effect upon the adjacent 4th ventricle. Exhibits only minimal surrounding e jonathan. No shift of midline structures. This lesion hugs the medial aspect of the left side of the te ntorium cerebelli but exhibits intra-axial origin. No evidence of hemorrhage within this mass. There are no other ring-enhancing lesions in the brain. PITUITARY GLAND: Empty sella syndrome. The pituitary gland is confined to the floor of the pituitary fossa. Cavernous sinuses appear unremarkable. FLOW VOIDS: The expected flow void are noted. No evidence of obvious aneurysm nor obvious vascular ma lformation. PARANASAL SINUSES: The visualized paranasal sinuses appear unremarkable. ORBITS: No obvious abnormal findings. IMPRESSION: 1. There is a lobulated 23 x 13 x 13 mm peripherally and moderately internally enhancing intra-axial mass in the left side of the micah and midbrain and left peduncle which is most probably a metastatic lesion given the history here. Although it is intimately associated with the most medial aspect of t he left side of the tentorium cerebelli, its appearance is more that of an intra-axial lesion than a meningioma. 2. There is very minimal associated edema in the micah and midbrain and no significant mass effect upo n the adjacent 4th ventricle nor shift of midline structures. DATA REPOSITORY:
[2025-02-02] MEDS: Gadoterate meglumine 20 ML SYRINGE 13 ML IVP (12:30)
[2025-02-02] MEDS: Normal Saline Flush 10 ML SYR IVP (12:31)
== END 2025-02-02 02:10 ==
LOC: DI 01:50
PROVIDERS: Visit Provider Radiology Radiation Oncology
DX: C79.31 Secondary malignant neoplasm of brain (principal)
CPT/HCPCS: 70553

== ENCOUNTER 2025-02-02 02:51 | Outpatient (CLI) | payer MEDICARE, SELFPAY ==
[2025-02-02 13:29] LABS: Abs Immature Grans 0.09 10^3/uL (0.0-0.06); Absolute Basophil Count 0.01 10^3/uL (0.0-0.2); Absolute Eosinophil Count 0.02 10^3/uL (0.0-0.7); Absolute Lymphocyte Count 1.34 10^3/uL (1.2-3.4); Absolute Monocyte Count 0.29 10^3/uL (0.1-0.8); Basophils % 0.5 %; Eosinophils % 1.1 %; HCT 36.4 % (36.0-46.0); HGB 11.9 g/dL (11.2-15.7); Immature Grans % 4.9 %; Lymphocytes % 73.2 %; MCH 29.5 pg (27.0-33.0); MCHC 32.7 % (32.0-36.0); MCV 90 fL (80-95); MPV 9.5 fL (8.0-11.0); Monocytes % 15.8 %; Neutrophils % 4.5 %; Platelet Count 268 10^3/uL (130-400); RBC 4.03 10^6/uL (3.93-5.22); RDW 13.8 % (11.7-14.6); RDW-SD 45.6 fL
[2025-02-02 13:40] LABS: Diff Comment Diff Reviewed; RBC Morphology Normal
[2025-02-02 13:42] LABS: Absolute Neutrophil Count 0.08 10^3/uL (1.2-6.7); WBC 1.83 10^3/uL (4.4-10.8)
[2025-02-02 14:10] LABS: ALT 68 U/L (14-59); AST 31 U/L (15-37); Albumin 2.8 g/dL (3.4-5.0); Alkaline Phosphatase 147 U/L (46-116); Anion Gap 7.3 mmol/L (3-11); BUN 13 mg/dL (7-18); Bilirubin, Total 0.2 mg/dL (0.2-1.0); CO2 31.7 mmol/L (21.0-32.0); CREATININE 1.3 mg/dL (0.55-1.02); Calcium 10.5 mg/dL (8.5-10.1); Chloride 104 mmol/L (98-107); Estimated GFR 45.35 (mL/min/1.73m2); Glucose 122 mg/dL (74-106); Magnesium 1.9 mg/dL (1.8-2.4); Potassium 3.9 mmol/L (3.5-5.1); Sodium 143 mmol/L (136-145); TSH 0.71 uIU/mL (0.36-3.74); Total Protein 7.4 g/dL (6.4-8.2)
== END 2025-02-02 02:52 | disposition home or self-care (01) ==
LOC: LBO 02:51
PROVIDERS: Visit Provider Internal Medicine Medical Oncology
DX: C79.31 Secondary malignant neoplasm of brain (principal); Z79.899 Other long term (current) drug therapy; C78.1 Secondary malignant neoplasm of mediastinum
CPT/HCPCS: 36415; 80053; 83735; 84443; 85025

== ENCOUNTER 2025-02-09 01:52 | Outpatient (CLI) | payer MEDICARE, SELFPAY ==
[2025-02-09 07:56] LABS: Abs Immature Grans 0.36 10^3/uL (0.0-0.06); Absolute Basophil Count 0.07 10^3/uL (0.0-0.2); Absolute Eosinophil Count 0.08 10^3/uL (0.0-0.7); Absolute Lymphocyte Count 2.01 10^3/uL (1.2-3.4); Absolute Monocyte Count 1.12 10^3/uL (0.1-0.8); Absolute Neutrophil Count 6.11 10^3/uL (1.2-6.7); Basophils % 0.7 %; Eosinophils % 0.8 %; HCT 38.8 % (36.0-46.0); HGB 12.6 g/dL (11.2-15.7); Immature Grans % 3.7 %; Lymphocytes % 20.6 %; MCH 29.4 pg (27.0-33.0); MCHC 32.5 % (32.0-36.0); MCV 90 fL (80-95); MPV 9.5 fL (8.0-11.0); Monocytes % 11.5 %; Neutrophils % 62.7 %; Nucleated RBC 0.2 % (0.0-0.3); Platelet Count 575 10^3/uL (130-400); RBC 4.29 10^6/uL (3.93-5.22); RDW 14.4 % (11.7-14.6); RDW-SD 46.7 fL; WBC 9.75 10^3/uL (4.4-10.8)
[2025-02-09 08:12] LABS: ALT 32 U/L (14-59); AST 20 U/L (15-37); Albumin 3.3 g/dL (3.4-5.0); Alkaline Phosphatase 144 U/L (46-116); Anion Gap 8.2 mmol/L (3-11); BUN 17 mg/dL (7-18); Bilirubin, Total 0.2 mg/dL (0.2-1.0); CO2 29.8 mmol/L (21.0-32.0); CREATININE 1.4 mg/dL (0.55-1.02); Calcium 10.3 mg/dL (8.5-10.1); Chloride 105 mmol/L (98-107); Estimated GFR 41.49 (mL/min/1.73m2); Glucose 157 mg/dL (74-106); Magnesium 1.9 mg/dL (1.8-2.4); Potassium 4.5 mmol/L (3.5-5.1); Sodium 143 mmol/L (136-145); Total Protein 7.6 g/dL (6.4-8.2)
== END 2025-02-09 01:53 | disposition home or self-care (01) ==
LOC: LBO 01:52
PROVIDERS: Visit Provider Internal Medicine Medical Oncology
DX: C79.31 Secondary malignant neoplasm of brain (principal); C78.1 Secondary malignant neoplasm of mediastinum
CPT/HCPCS: 36415; 80053; 83735; 85025

== ENCOUNTER 2025-02-24 01:15 | Outpatient (CLI) | payer MEDICARE, SELFPAY ==
--- NOTE | 2025-02-24 | DI.CT_ITS ---
Exam(s) CT CHEST W EXAM: CT CHEST W CLINICAL HISTORY: SCLC s/p 2 cycles of chemotherapy-restaging; secondary malignant neoplasm TECHNIQUE: Imaging Protocol: Axial computed tomography images with coronal and sagittal reformatted images were created and reviewed. Computer aided detection (CAD) was utilized. CONTRAST MATERIAL: Intravenous: Omnipaque 350 Contrast volume:70 ml. COMPARISON: CT CT CHEST/ABD/PEL W from 11/28/2024 FINDINGS: Pulmonary parenchyma: Stable 5 millimeter nodule anterior left lung base. No consolidation. No britney nant measurable mass. Tracheobronchial tree: No bronchiectasis or mucous plugging. Mediastinum and Celia: Interval decrease in adenopathy. The subcarinal node measures 16 by 13 compare d with 21 x 16 on the prior exam. The left hilar lymph node has decreased, now measuring 8 millimete rs. Left inferior hilar lymph node now measures 7 x 10 millimeters. Pleura: No effusion. No pneumothorax. Heart: The heart is not dilated. No coronary artery calcifications are seen. Aorta: Thoracic aorta non-dilated. Mild atherosclerotic changes. Pulmonary arteries: No gross evidence of emboli. Upper abdomen: No acute findings. Stable splenic cyst. Tiny hepatic cysts. Bones: No lytic or blastic lesions. No compression fractures. Soft tissues: Unremarkable. IMPRESSION: Significant interval decrease in size of mediastinal left hilar adenopathy. Stable 5 millimeter nodu le in the left lower lobe. No new findings. RADIATION DOSE DELIVERED: 97.5mGy.cm Total DLP DATA REPOSITORY: All CT scans at this facility are submitted to the National Radiology Data Registry (NRDR) Dose Index Registry (DIR) with the [employer] (ACR). RADIATION OPTIMIZATION: All CT scans at this facility use at least one of these dose optimization te chniques: automated exposure control; mA and/or kV adjustment per patient size (includes targeted exa ms where dose is matched to clinical indication); or iterative reconstruction.
[2025-02-24] MEDS: Omnipaque 350 MG/ML 100 ML BTL IJ (11:49)
[2025-02-24] MEDS: Normal Saline - Diluent 50 ML VIAL IJ (11:50)
== END 2025-02-24 01:35 ==
PROVIDERS: PCP Family Medicine; Visit Provider Nurse Practitioner Adult Health
DX: C78.1 Secondary malignant neoplasm of mediastinum (principal); C79.31 Secondary malignant neoplasm of brain
CPT/HCPCS: 71260; J3490

== ENCOUNTER 2025-03-03 03:40 | Outpatient (CLI) | payer MEDICARE, SELFPAY ==
[2025-03-03 07:56] LABS: Abs Immature Grans 0.05 10^3/uL (0.0-0.06); Absolute Basophil Count 0.04 10^3/uL (0.0-0.2); Absolute Eosinophil Count 0.13 10^3/uL (0.0-0.7); Absolute Lymphocyte Count 1.18 10^3/uL (1.2-3.4); Absolute Neutrophil Count 0.83 10^3/uL (1.2-6.7); Basophils % 1.2 %; HCT 36.8 % (36.0-46.0); HGB 12.1 g/dL (11.2-15.7); Immature Grans % 1.5 %; Lymphocytes % 36.5 %; MCH 29.4 pg (27.0-33.0); MCHC 32.9 % (32.0-36.0); MCV 90 fL (80-95); Neutrophils % 25.8 %; Platelet Count 274 10^3/uL (130-400); RBC 4.11 10^6/uL (3.93-5.22); RDW 15.2 % (11.7-14.6); RDW-SD 49.1 fL; WBC 3.23 10^3/uL (4.4-10.8)
[2025-03-03 08:03] LABS: Diff Comment Diff Reviewed; RBC Morphology Normal
[2025-03-03 08:18] LABS: ALT 24 U/L (14-59); AST 22 U/L (15-37); Albumin 3.4 g/dL (3.4-5.0); Alkaline Phosphatase 96 U/L (46-116); Anion Gap 6.2 mmol/L (3-11); BUN 10 mg/dL (7-18); Bilirubin, Total 0.3 mg/dL (0.2-1.0); CO2 26.8 mmol/L (21.0-32.0); CREATININE 1.4 mg/dL (0.55-1.02); Calcium 9.2 mg/dL (8.5-10.1); Chloride 103 mmol/L (98-107); Estimated GFR 41.49 (mL/min/1.73m2); Glucose 112 mg/dL (74-106); Magnesium 1.8 mg/dL (1.8-2.4); Potassium 3.9 mmol/L (3.5-5.1); Sodium 136 mmol/L (136-145); Total Protein 6.8 g/dL (6.4-8.2)
== END 2025-03-03 03:41 | disposition home or self-care (01) ==
LOC: LBO 03:40
PROVIDERS: PCP Family Medicine; Visit Provider Internal Medicine Medical Oncology
DX: C78.1 Secondary malignant neoplasm of mediastinum (principal); C79.31 Secondary malignant neoplasm of brain
CPT/HCPCS: 36415; 80053; 83735; 85025

== ENCOUNTER 2025-03-13 19:23 | Emergency (ER) | payer MEDICARE, SELFPAY ==
[2025-03-13] VITALS (16 sets, daily range): BP systolic 94–139; BP diastolic 38–52; PULSE 54–65; RESP 8–19; TEMP 36.7; O2SAT 96–98
--- NOTE | 2025-03-13 20:15 | DI.RAD_ITS ---
Exam(s) XR PORTABLE CHEST AP EXAM: XR PORTABLE CHEST AP CLINICAL HISTORY: FEVER TECHNIQUE: 2D digital imaging was performed. COMPARISON: No exams were available for comparison FINDINGS: LUNGS: No area of focal consolidation. Streaky density projects near the left heart border, likely r epresenting overlying structures. Mild atelectasis versus small infiltrate not excluded. The lungs are otherwise clear. No pleural abnormality seen. HEART: Normal size. AORTA: Normal diameter. BONES: Unremarkable for age. Soft tissues: Unremarkable. IMPRESSION: Question of atelectasis or small infiltrate along left heart border versus overlying structures. DATA REPOSITORY: RADIATION DOSE DELIVERED:
[2025-03-13 20:39] LABS: Abs Immature Grans 0.04 10^3/uL (0.0-0.06); Absolute Basophil Count 0.05 10^3/uL (0.0-0.2); Absolute Eosinophil Count 0.28 10^3/uL (0.0-0.7); Absolute Monocyte Count 0.89 10^3/uL (0.1-0.8); Absolute Neutrophil Count 6.49 10^3/uL (1.2-6.7); Basophils % 0.5 %; HCT 38.1 % (36.0-46.0); HGB 12.5 g/dL (11.2-15.7); Immature Grans % 0.4 %; Lymphocytes % 17.1 %; MCH 29.5 pg (27.0-33.0); MCHC 32.8 % (32.0-36.0); MCV 90 fL (80-95); MPV 10.6 fL (8.0-11.0); Monocytes % 9.5 %; Neutrophils % 69.5 %; Platelet Count 187 10^3/uL (130-400); RBC 4.24 10^6/uL (3.93-5.22); RDW 15.5 % (11.7-14.6); RDW-SD 50.5 fL; WBC 9.35 10^3/uL (4.4-10.8)
[2025-03-13] MEDS: Normal Saline 1,000 ML 1000 ML IV (20:54)
[2025-03-13 21:01] LABS: ALT 17 U/L (14-59); AST 14 U/L (15-37); Albumin 3.6 g/dL (3.4-5.0); Alkaline Phosphatase 81 U/L (46-116); Anion Gap 12.6 mmol/L (3-11); BUN 11 mg/dL (7-18); Bilirubin, Total 0.6 mg/dL (0.2-1.0); CO2 25.4 mmol/L (21.0-32.0); CREATININE 1.1 mg/dL (0.55-1.02); Calcium 9.9 mg/dL (8.5-10.1); Chloride 102 mmol/L (98-107); Estimated GFR 55.42 (mL/min/1.73m2); Glucose 94 mg/dL (74-106); Magnesium 1.9 mg/dL (1.8-2.4); NT-proBNP 368 pg/mL (<300); Potassium 3.8 mmol/L (3.5-5.1); Sodium 140 mmol/L (136-145); Total Protein 6.7 g/dL (6.4-8.2)
[2025-03-13 21:09] LABS: Procalcitonin < 0.10 ng/mL
--- NOTE | 2025-03-13 21:28 | DI.VRAD_ITS ---
PROCEDURE INFORMATION: Exam: XR Chest Exam date and time: 03/13/2025 8:43 PM Age: 64 years old Clinical indication: Fever TECHNIQUE: Imaging protocol: Radiologic exam of the chest. Views: 1 view. COMPARISON: CT CHEST W 02/24/2025 11:43 AM FINDINGS: Lungs: There is a small opacity along the left heart border which could represent atelectasis or infection. Pleural spaces: No pneumothorax. Heart/Mediastinum: The cardiomediastinal contours are within normal limits. Bones/joints: Mild skeletal degenerative changes are seen. IMPRESSION: 1. There is a small opacity along the left heart border which could represent atelectasis or infection. Other findings/details as above. Dictated and Authenticated by: Santa Godinez MD. Orderin Lauren Pollock MD
--- NOTE | 2025-03-13 21:30 | W.ED.GENAD ---
Discharge Plan Disposition Patient Disposition: Home Condition: Stable Discharge Details Clinical Impression: Fatigue, Metastatic cancer Primary Care Provider: Juanito Crowder ED Provider: Travon Aguilar Home Meds and New Rx's Prescriptions: No Action alprazolam 0.25 mg tablet 0.25 mg PO BID Qty: 20 0RF acetaminophen 325 mg tablet 975 mg PO Q6H PRN (Reason: pain) biotin 5 mg capsule 5 mg PO DAILY fluticasone propionate 50 mcg/actuation spray,suspension 2 spray intranasal BID PRN Rx Instructions: administer into each nostril silvestre (Zingiber officinalis) 500 mg capsule 500 mg PO QID Ubiquinone 10 mg capsule 10 mg PO DAILY gabapentin 100 mg capsule 100 mg PO QHS Patient Comments: 01/19/25 ST Hem/Onc visit Rx Instructions: Start 100mg at night x 3 nights, then 300mg at night x 3 nights, then take 300mg bid atorvastatin 10 mg tablet 10 mg PO DAILY Qty: 90 3RF metoprolol succinate 25 mg tablet extended release 24 hr 12.5 mg PO BID Qty: 90 3RF Eliquis 5 mg tablet 5 mg PO BID Qty: 180 3RF esomeprazole magnesium [Nexium] 40 mg capsule,delayed release(DR/EC) 40 mg PO DAILY cholecalciferol (vitamin D3) [Vitamin D3] 125 mcg (5,000 unit) tablet 5,000 unit PO ONCE cyanocobalamin (vitamin B-12) [Vitamin B-12] 1,000 mcg tablet 1,000 mcg PO DAILY calcium citrate 200 mg (950 mg) tablet 200 mg PO DAILY coenzyme Q10 [Co Q-10] 10 mg capsule 10 mg PO ONCE albuterol 90 mcg/actuation aerosol 90 mcg inhalation PRN fexofenadine [Carlyn Allergy] 60 mg tablet 60 mg PO ONCE memantine 10 mg tablet 20 mg PO ONCE Patient Comments: TAKE 2 TABLETS BY MOUTH ONCE DAILY olanzapine 5 mg tablet 5 mg PO DAILY Patient Comments: TAKE 1 TABLET BY MOUTH NIGHTLY Discharge Instructions Additional Instructions: Lab work looks very reassuring today. No signs of overwhelming infection or neutropenia. Viral testing, chest x-ray and urinalysis are all negative. Please increase your hydration and try and eat a little bit more. Follow-up with your oncology team as scheduled, if over the weekend you develop fevers or other symptoms of concern, please return to the emergency department for reevaluation. HPI General Date/Time Provider Initiated Documentation: 03/13/25 20:17. Limitations to Documentation: no limitations. Information obtained by: patient. 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 She asked completed radiation therapy and is currently on chemotherapy. She was last seen in clinic this past week, but her ANC was too low for treatment, so chemotherapy was delayed. She was given IV fluids and dexamethasone to help. She reports that over the last week she has had severe fatigue, sleeping a lot, having poor appetite which is unchanged. She states that she is drinking water and still having urine output. She reports body aches, no fever at home highest temperature measured at 99. Related Data Home Medications ?Medication ?Instructions ?Recorded ?Confirmed albuterol 90 mcg/actuation aerosol 90 mcg inhalation PRN 11/28/24 03/13/25 inhaler calcium citrate 200 mg PO DAILY 11/28/24 03/13/25 cholecalciferol (vitamin D3) 125 5,000 unit PO ONCE 11/28/24 03/13/25 mcg (5,000 unit) tablet (Vitamin D3) coenzyme Q10 10 mg capsule (Co 10 mg PO ONCE 11/28/24 03/13/25 Q-10) cyanocobalamin (vitamin B-12) 1,000 mcg PO DAILY 11/28/24 03/13/25 1,000 mcg tablet (Vitamin B-12) esomeprazole magnesium 40 mg 40 mg PO DAILY 11/28/24 03/13/25 capsule,delayed release (Nexium) fexofenadine 60 mg tablet (Carlyn 60 mg PO ONCE 11/28/24 03/13/25 Allergy) Ubiquinone 10 mg PO DAILY 12/05/24 03/13/25 acetaminophen 325 mg tablet 975 mg PO Q6H PRN pain 12/05/24 03/13/25 biotin 5 mg capsule 5 mg PO DAILY 12/05/24 03/13/25 fluticasone propionate 50 2 spray intranasal BID PRN 12/05/24 03/13/25 mcg/actuation nasal spray,suspension silvestre (Zingiber officinalis) 500 500 mg PO QID 12/05/24 03/13/25 mg capsule alprazolam 0.25 mg tablet 0.25 mg PO BID #20 tabs 01/28/25 05/02/25 gabapentin 100 mg capsule 100 mg PO QHS 01/22/25 03/13/25 apixaban 5 mg tablet (Eliquis) 5 mg PO BID #180 tabs 01/29/25 03/13/25 atorvastatin 10 mg tablet 10 mg PO DAILY #90 tabs 01/29/25 03/13/25 metoprolol succinate 25 mg 12.5 mg (1/2 x 25 mg) PO BID #90 01/29/25 03/13/25 tablet,extended release 24 hr tabs memantine 10 mg tablet 20 mg PO ONCE 03/13/25 03/13/25 olanzapine 5 mg tablet 5 mg PO DAILY 03/13/25 03/13/25 Previous Rx's ?Medication ?Instructions ?Recorded alprazolam 0.25 mg tablet 0.25 mg PO BID #20 tabs 12/09/24 apixaban 5 mg tablet (Eliquis) 5 mg PO BID #180 tabs 01/29/25 atorvastatin 10 mg tablet 10 mg PO DAILY #90 tabs 01/29/25 metoprolol succinate 25 mg 12.5 mg (1/2 x 25 mg) PO BID #90 01/29/25 tablet,extended release 24 hr tabs Allergies Allergy/AdvReac Type Severity Reaction Status Date / Time morphine AdvReac Intermediate Other (See Verified 03/13/25 19:32 Comment) penicillin V (From Pen-Vee K) AdvReac Intermediate Other (See Verified 03/13/25 19:32 Comment) General Stated Complaint: GenMedical BAKARI: 3 Exam Narrative Exam Narrative: Review of Systems: All systems reviewed & are unremarkable except as noted in HPI and below Ill-appearing no fever NCAT PERRL, normal conjunctiva No intraoral lesions Right TM with cerumen impaction, left TM with fluid behind the TM but no bulging erythema, canal normal RRR Unlabored respiratory effort clear breath sounds bilaterally Nondistended abdomen soft nontender No rashes or lesions. Course Vital Signs Vital signs: Vital Signs Temperature 36.7 C 03/13/25 19: Pulse 65 03/13/25 19:26 Respiratory Rate 18 03/13/25 19:26 Blood Pressure 110/49 L 03/13/25 19: Pulse Oximetry 96 03/13/25 19:26 Temperature 36.7 C 03/13/25 19:32 Temperature Source Oral 03/13/25 19:32 Pulse 58 L 03/13/25 20:40 Pulse 57 L 03/13/25 20:50 Respiratory Rate 15 03/13/25 20:50 Respiratory Effort Normal 03/13/25 20:39 Respiratory Depth Normal 03/13/25 20:39 Respiratory Pattern Normal 03/13/25 20:39 Blood Pressure 110/49 L 03/13/25 19:32 Pulse Oximetry 96 03/13/25 20:40 Pain Level 5 03/13/25 19:32 Lab/Test Results Lab/Test Results: 03/13/25 20:57 Blood Blood Culture - Pending 03/13/25 20:35 Blood Blood Culture - Pending Laboratory Tests Range/Units 03/13/25 20:31 WBC (4.4-10.8) 10^3/uL 9.35 RBC (3.93-5.22) 10^6/uL 4.24 Hgb (11.2-15.7) g/dL 12.5 Hct (36.0-46.0) % 38.1 MCV (80-95) fL 90 MCH (27.0-33.0) pg 29.5 MCHC (32.0-36.0) % 32.8 RDW (11.7-14.6) % 15.5 H Plt Count (130-400) 10^3/uL 187 MPV (8.0-11.0) fL 10.6 Immature Gran % % 0.4 Neutrophils % % 69.5 Lymphocytes % % 17.1 Monocytes % % 9.5 Eosinophils % % 3.0 Basophils % % 0.5 Nucleated RBC % (0.0-0.3) % 0.0 Absolute Neutrophils (1.2-6.7) 10^3/uL 6.49 Absolute Lymphocytes (1.2-3.4) 10^3/uL 1.60 Absolute Monocytes (0.1-0.8) 10^3/uL 0.89 H Absolute Eosinophils (0.0-0.7) 10^3/uL 0.28 Absolute Basophils (0.0-0.2) 10^3/uL 0.05 Sodium (136-145) mmol/L 140 Potassium (3.5-5.1) mmol/L 3.8 Chloride (98-107) mmol/L 102 Carbon Dioxide (21.0-32.0) mmol/L 25.4 Anion Gap (3-11) mmol/L 12.6 H BUN (7-18) mg/dL 11 Creatinine (0.55-1.02) mg/dL 1.1 H Est GFR (CKD-EPI 2020) (mL/min/1.73m2) 55.42 Glucose (74-106) mg/dL 94 Calcium (8.5-10.1) mg/dL 9.9 Magnesium (1.8-2.4) mg/dL 1.9 Total Bilirubin (0.2-1.0) mg/dL 0.6 AST (15-37) U/L 14 L ALT (14-59) U/L 17 Alkaline Phosphatase (46-116) U/L 81 NT-Pro-B Natriuret Pep (<300) pg/mL 368 H Total Protein (6.4-8.2) g/dL 6.7 Albumin (3.4-5.0) g/dL 3.6 Procalcitonin ng/mL < 0.10 Medical Decision Making Emergent evaluation of fatigue. Patient has metastatic carcinoma on chemotherapy. Was too neutropenic for last chemotherapy treatment. Initial differential includes neutropenic fever, failure to thrive, dehydration. Patient is hemodynamically stable. I reviewed her medical record and most recent clinic visit for oncology a most of the same complaints that she has today including fatigue sleeping ear pain are all present at the last visit as well. Will check lab work cultures chest x-ray viral testing monitor and reassess. Emergency department workup has been fairly unremarkable. Neutropenia has improved white blood cell count is 9.3 with a fairly normal differential. Slight elevation in anion gap and creatinine which I suspect is secondary to volume depletion. She has been resuscitated with IV fluids. Procalcitonin is not elevated. Urinalysis is not infected. Viral testing and chest x-ray also do not reveal an acute etiology. The patient does not demonstrating any signs or symptoms that require hospitalization. Discussed findings with her and her daughter. She has follow-up scheduled on Sunday with oncology. Recommend increased oral hydration and trying to eat food as best she can as I suspect that this is likely why she feels tired. Quality:SDOH Health Related Social Needs: Health related social needs food insecurity (Z59.41), material hardship(utilities) (Z59.12), problems related to housing/economic circumstances (Z59.89), feeling lonely/isolated (Z60.8) PFSH All Active Problems (Updated 03/13/25 @ 22:11 by Travon Aguilar MD) Metastatic cancer (Acute) Fatigue (Acute) Right sided weakness (Acute ~01/2025) 02/02/25/ [facility] Hem/Onc Secondary malignant neoplasm of mediastinum (Acute) 01/19/25 [facility] Hem/Onc Secondary malignant neoplasm of brain (Acute) GERD (gastroesophageal reflux disease) (Chronic) Smoker (Acute) DVT prophylaxis (Acute) Brain mass (Acute) Lung nodule (Acute) Paroxysmal atrial fibrillation (Acute) Medical History (Updated 03/13/25 @ 22:11 by Travon Aguilar MD) Hyperlipidemia Anxiety 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, negative MRI per patient Crohn disease states manages with silvestre, not active Surgical History (Updated 11/28/24 @ 23:34 by Tomas Gil) S/P lumpectomy, left breast fatty tumors per patient S/P tonsillectomy H/O section Family History (Updated 11/28/24 @ 23:58 by Tomas Gil) Sister Cancer Maternal Grandmother Cancer Paternal Grandfather Cancer Social History (Updated 11/28/24 @ 23:57 by Tomas Gil) Smoking/Tobacco Use Status: Current-Occasional Tobacco Type: cigarettes Tobacco: How many years used: 50 Quit status: considering quitting Counseling given: provider counseling and counseling >3 minutes Smoking risk assessment performed?: Yes Alcohol Intake: never Drug use: Never Substance use type: does not use Housing: house Pets and animals: Yes (2 dogs) Additional Social history: Moved from [facility] to [facility] in 11/04 to live near daughter in [place]. in 2023.
[2025-03-13 21:38] LABS: COVID-19 PCR Negative (Negative); Influenza A PCR Negative (Negative); Influenza B PCR Negative (Negative); RSV PCR Negative (Negative)
[2025-03-13 21:43] LABS: Source Nasopharynx
[2025-03-13 21:50] LABS: Bilirubin Small (Negative); Blood Negative (Negative); Clarity Clear (Clear); Glucose Negative (Negative); Ketones 15 mg/dL (Negative); Leukocyte Esterase Small (Negative); Nitrite Negative (Negative); Urobilinogen 0.2 mg/dL (Up to 0.2)
[2025-03-13 21:56] LABS: Bacteria Few HPF (Negative); C & S Indicated? No; Casts Negative LPF (Negative); Crystals Negative HPF (Negative); Epithelial Cells Few HPF (Negative); Mucus Trace (Negative); WBC 0-2 HPF (0-5)
== END 2025-03-13 22:43 | disposition home or self-care (01) ==
PROVIDERS: Emergency Provider Emergency Medicine; PCP Family Medicine
DX: R53.83 Other fatigue (principal); C78.1 Secondary malignant neoplasm of mediastinum; C79.31 Secondary malignant neoplasm of brain; E78.5 Hyperlipidemia, unspecified; Z79.01 Long term (current) use of anticoagulants; F17.210 Nicotine dependence, cigarettes, uncomplicated
CPT/HCPCS: 80053; 84145; 87040; 87637; 96360; 96361; 99284; 71045; 81003; 81015; 83735; 83880; 85025

== ENCOUNTER 2025-03-17 01:54 | Outpatient (CLI) | payer MEDICARE, SELFPAY ==
[2025-03-17 07:13] LABS: Abs Immature Grans 0.04 10^3/uL (0.0-0.06); Absolute Basophil Count 0.06 10^3/uL (0.0-0.2); Absolute Eosinophil Count 0.72 10^3/uL (0.0-0.7); Absolute Lymphocyte Count 1.25 10^3/uL (1.2-3.4); Absolute Monocyte Count 0.92 10^3/uL (0.1-0.8); Absolute Neutrophil Count 8.07 10^3/uL (1.2-6.7); Basophils % 0.5 %; Eosinophils % 6.5 %; HCT 39.6 % (36.0-46.0); HGB 13.1 g/dL (11.2-15.7); Immature Grans % 0.4 %; Lymphocytes % 11.3 %; MCH 29.8 pg (27.0-33.0); MCHC 33.1 % (32.0-36.0); MCV 90 fL (80-95); MPV 10.6 fL (8.0-11.0); Monocytes % 8.3 %; Platelet Count 203 10^3/uL (130-400); RDW 15.7 % (11.7-14.6); RDW-SD 51.5 fL; WBC 11.06 10^3/uL (4.4-10.8)
[2025-03-17 07:41] LABS: ALT 17 U/L (14-59); AST 17 U/L (15-37); Albumin 3.8 g/dL (3.4-5.0); Alkaline Phosphatase 81 U/L (46-116); Anion Gap 13.2 mmol/L (3-11); BUN 10 mg/dL (7-18); Bilirubin, Total 0.8 mg/dL (0.2-1.0); CO2 23.8 mmol/L (21.0-32.0); CREATININE 1.2 mg/dL (0.55-1.02); Calcium 10.1 mg/dL (8.5-10.1); Chloride 103 mmol/L (98-107); Estimated GFR 49.92 (mL/min/1.73m2); Glucose 117 mg/dL (74-106); Magnesium 1.8 mg/dL (1.8-2.4); Potassium 3.8 mmol/L (3.5-5.1); Sodium 140 mmol/L (136-145); Total Protein 6.9 g/dL (6.4-8.2)
== END 2025-03-17 01:55 | disposition home or self-care (01) ==
LOC: LBO 01:54
PROVIDERS: PCP Family Medicine; Visit Provider Internal Medicine Medical Oncology
DX: C79.31 Secondary malignant neoplasm of brain (principal); C78.1 Secondary malignant neoplasm of mediastinum
CPT/HCPCS: 36415; 80053; 83735; 85025

== ENCOUNTER 2025-03-24 03:49 | Outpatient (CLI) | payer MEDICARE, SELFPAY ==
[2025-03-24 09:15] LABS: Abs Immature Grans 0.02 10^3/uL (0.0-0.06); Absolute Basophil Count 0.06 10^3/uL (0.0-0.2); Absolute Eosinophil Count 1.35 10^3/uL (0.0-0.7); Absolute Monocyte Count 0.83 10^3/uL (0.1-0.8); Absolute Neutrophil Count 5.28 10^3/uL (1.2-6.7); Basophils % 0.7 %; Eosinophils % 15.4 %; HCT 39.5 % (36.0-46.0); HGB 13.2 g/dL (11.2-15.7); Immature Grans % 0.2 %; Lymphocytes % 13.7 %; MCH 29.9 pg (27.0-33.0); MCHC 33.4 % (32.0-36.0); MCV 89 fL (80-95); MPV 10.1 fL (8.0-11.0); Monocytes % 9.5 %; Neutrophils % 60.5 %; Platelet Count 200 10^3/uL (130-400); RBC 4.42 10^6/uL (3.93-5.22); RDW 15.9 % (11.7-14.6); RDW-SD 51.8 fL; WBC 8.74 10^3/uL (4.4-10.8)
[2025-03-24 09:30] LABS: ALT 18 U/L (14-59); AST 12 U/L (15-37); Albumin 3.9 g/dL (3.4-5.0); Alkaline Phosphatase 78 U/L (46-116); BUN 11 mg/dL (7-18); Bilirubin, Total 0.6 mg/dL (0.2-1.0); CREATININE 1.1 mg/dL (0.55-1.02); Calcium 10.3 mg/dL (8.5-10.1); Chloride 105 mmol/L (98-107); Estimated GFR 55.42 (mL/min/1.73m2); Glucose 140 mg/dL (74-106); Potassium 4.1 mmol/L (3.5-5.1); Sodium 140 mmol/L (136-145)
== END 2025-03-24 03:50 | disposition home or self-care (01) ==
LOC: LBO 03:49
PROVIDERS: Nurse Practitioner Family; PCP Family Medicine; Visit Provider Internal Medicine Medical Oncology
DX: C78.1 Secondary malignant neoplasm of mediastinum (principal); C79.31 Secondary malignant neoplasm of brain; Z79.899 Other long term (current) drug therapy
CPT/HCPCS: 36415; 80053; 83735; 84439; 85025

== ENCOUNTER 2025-04-14 02:07 | Outpatient (CLI) | payer MEDICARE, SELFPAY ==
[2025-04-14 08:22] LABS: Abs Immature Grans 0.12 10^3/uL (0.0-0.06); Absolute Basophil Count 0.07 10^3/uL (0.0-0.2); Absolute Eosinophil Count 0.02 10^3/uL (0.0-0.7); Absolute Lymphocyte Count 1.58 10^3/uL (1.2-3.4); Absolute Monocyte Count 1.13 10^3/uL (0.1-0.8); Basophils % 0.6 %; Eosinophils % 0.2 %; HCT 36.9 % (36.0-46.0); HGB 11.8 g/dL (11.2-15.7); Lymphocytes % 13.4 %; MCH 29.5 pg (27.0-33.0); MCV 92 fL (80-95); Monocytes % 9.6 %; Neutrophils % 75.2 %; Platelet Count 400 10^3/uL (130-400); RDW 16.9 % (11.7-14.6); RDW-SD 55.3 fL
[2025-04-14 08:23] LABS: Absolute Neutrophil Count 8.87 10^3/uL (1.2-6.7)
[2025-04-14 08:27] LABS: FREE T4 0.96 ng/dL (0.76-1.46); TSH 0.31 uIU/mL (0.36-3.74)
[2025-04-14 08:47] LABS: ALT 22 U/L (14-59); AST 15 U/L (15-37); Albumin 3.6 g/dL (3.4-5.0); Alkaline Phosphatase 101 U/L (46-116); Anion Gap 12.4 mmol/L (3-11); BUN 16 mg/dL (7-18); Bilirubin, Total 0.3 mg/dL (0.2-1.0); CO2 25.6 mmol/L (21.0-32.0); CREATININE 1.1 mg/dL (0.55-1.02); Calcium 9.5 mg/dL (8.5-10.1); Chloride 104 mmol/L (98-107); Estimated GFR 55.42 (mL/min/1.73m2); Glucose 128 mg/dL (74-106); Potassium 4.2 mmol/L (3.5-5.1); Sodium 142 mmol/L (136-145); Total Protein 6.7 g/dL (6.4-8.2)
== END 2025-04-14 02:08 | disposition home or self-care (01) ==
LOC: LBO 02:08
PROVIDERS: PCP Family Medicine; Visit Provider Nurse Practitioner Family
DX: Z79.899 Other long term (current) drug therapy (principal); C79.31 Secondary malignant neoplasm of brain; C78.1 Secondary malignant neoplasm of mediastinum
CPT/HCPCS: 36415; 80053; 83735; 84439; 84443; 85025

== ENCOUNTER 2025-05-05 03:04 | Outpatient (CLI) | payer MEDICARE, SELFPAY ==
[2025-05-05 07:30] LABS: Abs Immature Grans 0.16 10^3/uL (0.0-0.06); Absolute Basophil Count 0.05 10^3/uL (0.0-0.2); Absolute Eosinophil Count 0.08 10^3/uL (0.0-0.7); Absolute Monocyte Count 1.12 10^3/uL (0.1-0.8); Basophils % 0.4 %; Eosinophils % 0.6 %; HCT 34.1 % (36.0-46.0); HGB 10.9 g/dL (11.2-15.7); Immature Grans % 1.3 %; Lymphocytes % 10.8 %; MCH 30.2 pg (27.0-33.0); MCV 95 fL (80-95); MPV 9.6 fL (8.0-11.0); Monocytes % 8.8 %; Neutrophils % 78.1 %; Nucleated RBC 0.2 % (0.0-0.3); Platelet Count 298 10^3/uL (130-400); RBC 3.61 10^6/uL (3.93-5.22); RDW 17.7 % (11.7-14.6); RDW-SD 60.4 fL; WBC 12.74 10^3/uL (4.4-10.8)
[2025-05-05 07:33] LABS: Absolute Lymphocyte Count 1.38 10^3/uL (1.2-3.4); Absolute Neutrophil Count 9.95 10^3/uL (1.2-6.7)
[2025-05-05 08:18] LABS: ALT 22 U/L (14-59); AST 11 U/L (15-37); Albumin 3.8 g/dL (3.4-5.0); Alkaline Phosphatase 109 U/L (46-116); BUN 12 mg/dL (7-18); Bilirubin, Total 0.3 mg/dL (0.2-1.0); Calcium 9.7 mg/dL (8.5-10.1); Chloride 105 mmol/L (98-107); Estimated GFR 62.13 (mL/min/1.73m2); FREE T4 0.98 ng/dL (0.76-1.46); Glucose 120 mg/dL (74-106); Sodium 143 mmol/L (136-145); TSH 0.47 uIU/mL (0.36-3.74); Total Protein 6.6 g/dL (6.4-8.2)
== END 2025-05-05 03:05 | disposition home or self-care (01) ==
LOC: LBO 03:04
PROVIDERS: PCP Family Medicine; Visit Provider Nurse Practitioner Family
DX: Z79.899 Other long term (current) drug therapy (principal); C78.1 Secondary malignant neoplasm of mediastinum; C79.31 Secondary malignant neoplasm of brain
CPT/HCPCS: 36415; 80053; 83735; 84439; 84443; 85025

== ENCOUNTER 2025-05-23 12:12 | Emergency (ER) | payer MEDICARE, SELFPAY ==
[2025-05-23] VITALS (24 sets, daily range): BP systolic 121–202; BP diastolic 51–109; PULSE 63–98; RESP 11–22; TEMP 36.7; O2SAT 96–100
--- NOTE | 2025-05-23 12:45 | DI.CT_ITS ---
Exam(s) CT HEAD W EXAM: CT HEAD W CLINICAL HISTORY: memory issues, R. hand numb, hx metastatic ca. TECHNIQUE: Imaging Protocol: Axial computed tomography images of the head with coronal and sagittal reformatted images were created and reviewed. CONTRAST MATERIAL: Intravenous: Omnipaque 350 Contrast volume:100 ml Contrast route:IV - COMPARISON: CT CT BRAIN NECK CTA from 11/28/2024 FINDINGS: Ventricles and Extra axial spaces: Normal in size and morphology for the patient's age. Hemorrhage: None. Cerebral parenchyma: Normal. No abnormal enhancing lesions. No evidence of infarct. Enhancement: No suspicious enhancement. Midline shift: None. Brainstem: Mild defect at the left side of the micah and midbrain in the location of the previously noted mass. No evidence of residual or recurrence mass. No new lesions are identified elsewhere in the brain. Cerebellum: Normal. Calvarium: Normal. Visualized Paranasal sinuses/Mastoids: Clear. Soft tissues: Unremarkable. IMPRESSION: Small defect at the left side of the micah and midbrain in the location of the previous mass. No evidence of abnormal enhancement in this region or row recurrence mass. No new lesions are identified. The preliminary [facility] report was reviewed. RADIATION DOSE DELIVERED: Total DLP DATA REPOSITORY: All CT scans at this facility are submitted to the National Radiology Data Registry (NRDR) Dose Index Registry (DIR) with the [employer] (ACR). RADIATION OPTIMIZATION: All CT scans at this facility use at least one of these dose optimization techniques: automated exposure control; mA and/or kV adjustment per patient size (includes targeted exams where dose is matched to clinical indication); or iterative reconstruction.
[2025-05-23] MEDS: Lactated Ringers 1,000 ML 1000 ML IV (13:00)
--- NOTE | 2025-05-23 13:00 | W.ED.GENAD ---
Discharge Plan Disposition Patient Disposition: Home Condition: Stable Discharge Details Clinical Impression: Memory changes, Small cell lung cancer, Secondary malignant neoplasm of brain Primary Care Provider: Juanito Crowder ED Provider: Adrienne Hilton Home Meds and New Rx's Prescriptions: No Action alprazolam 0.25 mg tablet 0.25 mg PO BID Qty: 20 0RF acetaminophen 325 mg tablet 975 mg PO Q6H PRN (Reason: pain) biotin 5 mg capsule 5 mg PO DAILY fluticasone propionate 50 mcg/actuation spray,suspension 2 spray intranasal BID PRN Rx Instructions: administer into each nostril silvetsre (Zingiber officinalis) 500 mg capsule 500 mg PO QID Ubiquinone 10 mg capsule 10 mg PO DAILY gabapentin 100 mg capsule 100 mg PO QHS Patient Comments: 01/19/25 [facility] Hem/Onc visit Rx Instructions: Start 100mg at night x 3 nights, then 300mg at night x 3 nights, then take 300mg bid atorvastatin 10 mg tablet 10 mg PO DAILY Qty: 90 3RF metoprolol succinate 25 mg tablet extended release 24 hr 12.5 mg PO BID Qty: 90 3RF Eliquis 5 mg tablet 5 mg PO BID Qty: 180 3RF esomeprazole magnesium [Nexium] 40 mg capsule,delayed release(DR/EC) 40 mg PO DAILY cholecalciferol (vitamin D3) [Vitamin D3] 125 mcg (5,000 unit) tablet 5,000 unit PO ONCE cyanocobalamin (vitamin B-12) [Vitamin B-12] 1,000 mcg tablet 1,000 mcg PO DAILY calcium citrate 200 mg (950 mg) tablet 200 mg PO DAILY coenzyme Q10 [Co Q-10] 10 mg capsule 10 mg PO ONCE albuterol 90 mcg/actuation aerosol 90 mcg inhalation PRN fexofenadine [Carlyn Allergy] 60 mg tablet 60 mg PO ONCE memantine 10 mg tablet 20 mg PO ONCE Patient Comments: TAKE 2 TABLETS BY MOUTH ONCE DAILY olanzapine 5 mg tablet 5 mg PO DAILY Patient Comments: TAKE 1 TABLET BY MOUTH NIGHTLY Discharge Instructions Instructions: Evaluating memory and thinking problems Additional Instructions: You were seen in the emergency department today for evaluation of memory changes since Sunday. In our department you had a full physical examination performed, had a CT scan of your brain that did not show any new bleeding, worsening of your known metastases, or other abnormalities which would easily explain your symptoms. You had a laboratory evaluation which was notable for mild dehydration, you did receive fluids while in the emergency department. There was no sign of damage to your heart, significant electrolyte derangements, or significant changes to your thyroid function which might help explain your symptoms. Your urinalysis did not show signs of infection, within the limits of the sample that was obtained. I did reach out to the oncology team at [facility], and they will follow-up with you in the outpatient environment to discuss this visit and any other symptoms that change, worsen, or persist. In the meantime, I do recommend that the patient have increased family support to allow her to continue to safely be in the home, including reminders to take medication, eat and drink, etc. Certainly if something changes, or if you are worried about her safety in the home, you can always return to the emergency department for reevaluation. Please follow-up with your primary care provider in the next few days to discuss this visit and any symptoms that change, worsen, or persist. Thank you for allowing us to be part of your care. HPI General Mode of arrival: ambulatory. Date/Time Provider Initiated Documentation: 05/23/25 12:27. Limitations to Documentation: no limitations. Information obtained by: patient, family and old records reviewed. HPI Narrative: This is a 64-year-old female patient with a history of small cell lung cancer with known metastases to the mediastinum and brain, followed by [facility] for radiation and immunotherapy, with improvement in her lesions noted on an MRI in early May. She is presenting with her family member with a concern for memory changes. The patient resides alone but has strong family supports, and they noted today that the patient seemed more confused, could not remember things and was having difficulty recognizing her daughter's home, asking where they were going after being told multiple times, etc. It seems that these memory issues started back on Sunday, as she had a phone call at that time that she did not remember. She has not sustained any known trauma, though the family suspects that she has not been taking her medications, which include memantine. She has not had any associated symptoms such as nausea or vomiting, dysuria or diarrhea, skin changes, chest pain. She did have a brief episode of abdominal discomfort this morning, which resolved when she took her prescribed Nexium. Related Data Home Medications ?Medication ?Instructions ?Recorded ?Confirmed albuterol 90 mcg/actuation aerosol 90 mcg inhalation PRN 11/28/24 05/23/25 inhaler calcium citrate 200 mg PO DAILY 11/28/24 05/23/25 cholecalciferol (vitamin D3) 125 5,000 unit PO ONCE 11/28/24 05/23/25 mcg (5,000 unit) tablet (Vitamin D3) coenzyme Q10 10 mg capsule (Co 10 mg PO ONCE 11/28/24 05/23/25 Q-10) cyanocobalamin (vitamin B-12) 1,000 mcg PO DAILY 11/28/24 05/23/25 1,000 mcg tablet (Vitamin B-12) esomeprazole magnesium 40 mg 40 mg PO DAILY 11/28/24 05/23/25 capsule,delayed release (Nexium) fexofenadine 60 mg tablet (Carlyn 60 mg PO ONCE 11/28/24 05/23/25 Allergy) Ubiquinone 10 mg PO DAILY 12/05/24 05/23/25 acetaminophen 325 mg tablet 975 mg PO Q6H PRN pain 12/05/24 05/23/25 biotin 5 mg capsule 5 mg PO DAILY 12/05/24 05/23/25 fluticasone propionate 50 2 spray intranasal BID PRN 12/05/24 05/23/25 mcg/actuation nasal spray,suspension silvestre (Zingiber officinalis) 500 500 mg PO QID 12/05/24 05/23/25 mg capsule alprazolam 0.25 mg tablet 0.25 mg PO BID #20 tabs 12/09/24 05/23/25 gabapentin 100 mg capsule 100 mg PO QHS 01/22/25 05/23/25 apixaban 5 mg tablet (Eliquis) 5 mg PO BID #180 tabs 01/29/25 05/23/25 atorvastatin 10 mg tablet 10 mg PO DAILY #90 tabs 01/29/25 05/23/25 metoprolol succinate 25 mg 12.5 mg (1/2 x 25 mg) PO BID #90 01/29/25 05/23/25 tablet,extended release 24 hr tabs memantine 10 mg tablet 20 mg PO ONCE 03/13/25 05/23/25 olanzapine 5 mg tablet 5 mg PO DAILY 03/13/25 05/23/25 Previous Rx's ?Medication ?Instructions ?Recorded alprazolam 0.25 mg tablet 0.25 mg PO BID #20 tabs 12/09/24 apixaban 5 mg tablet (Eliquis) 5 mg PO BID #180 tabs 01/29/25 atorvastatin 10 mg tablet 10 mg PO DAILY #90 tabs 01/29/25 metoprolol succinate 25 mg 12.5 mg (1/2 x 25 mg) PO BID #90 01/29/25 tablet,extended release 24 hr tabs Allergies Allergy/AdvReac Type Severity Reaction Status Date / Time morphine AdvReac Intermediate Other (See Verified 05/23/25 12:19 Comment) penicillin V (From Pen-Vee K) AdvReac Intermediate Other (See Verified 05/23/25 12:19 Comment) General Stated Complaint: AMS/LOC BAKARI: 3 Exam Narrative Exam Narrative: Gen: awake and alert, in no apparent distress. Appears well nourished. HEENT: PERRL, EOMs full and without nystagmus. External ears and nose normal, mucous membranes moist. Neck: Supple, full range of motion, no observable masses Lungs: No increased work of breathing, lung sounds clear and equal bilaterally without wheezes, rhonchi, or rales. CV: Heart with regular rate and rhythm, no murmurs auscultated. Strong and symmetrical radial pulses. Abdomen: Soft, nondistended, non-tender to palpation. No rigidity, rebound tenderness, or guarding. MSK: No joint swelling, no redness. Full ROM without limitation, no external traumatic findings. Skin: No rashes or lesions to visualized skin. Normal color, warm, and dry. Neuro: Cranial nerves II-XII intact and symmetrical bilaterally. 5/5 strength in all muscle groups x4 extremities. No sensory deficits, though the patient does endorse some tingling in the right hand which has been present for several days. Ambulates with steady gait. Some short-term memory changes but otherwise the patient is able to answer alert and oriented questions appropriately Psych: Appropriate for situation. Course Vital Signs Vital signs: Vital Signs Temperature 36.7 C 05/23/25 12:13 Pulse 98 H 05/23/25 12:13 Respiratory Rate 18 05/23/25 12:13 Blood Pressure 121/77 05/23/25 12:13 Pulse Oximetry 97 05/23/25 12:13 Temperature 36.7 C 05/23/25 12:13 Pulse 98 H 05/23/25 12:13 Respiratory Rate 18 05/23/25 12:13 Blood Pressure 121/77 05/23/25 12:13 Pulse Oximetry 97 05/23/25 12:13 Oxygen Delivery Method Room Air 05/23/25 12:13 Oxygen Flow Rate 0 05/23/25 12:13 Pain Level 0 05/23/25 12:13 Medical Decision Making This is a 64-year-old female patient presenting for evaluation of memory changes. My differential includes but is not limited to intracranial abnormality including mass effect and worsening metastases, intracranial hemorrhage, stroke, though I am reassured by the patient's lack of new neurodeficits. I considered dehydration, metabolic derangement, kidney injury, infection such as urinary tract infection, effects of medication or medication withdrawal in the setting of her forgetting to take her medications. The patient has no chest pain to suggest ACS, has not taken any falls to suggest traumatic injury. We will obtain a laboratory study to include CBC, CMP, magnesium, troponin, urinalysis, and will obtain a CT of the brain with and without contrast given history of metastases. Will obtain urinalysis. I will provide the patient with a liter of IV fluids for rehydration. - I independently interpreted the laboratory studies, which show no significant or worsening leukocytosis, anemia, or thrombocytopenia. The chemistry panel is without evidence of electrolyte abnormality, kidney dysfunction, or liver injury, though the patient does have a BUN to creatinine ratio that is very slightly greater than 22 1, which may represent dehydration. Troponin is negative and without interval increase on 1 hour delta recheck. Lipase is low, urinalysis with some ketones, but no infectious findings, unfortunately this was a contaminated sample but in the absence of symptoms we will hold on empiric treatment. I reviewed the patient's CT of her head, which shows a small defect in the left side of the micah and midbrain in the area of her prior lesion, with no new lesions or intracranial hemorrhage or worsening of her intracranial changes. I reached out to the oncologist on-call at [facility] to discuss the patient's case. They recommend that we obtain a TSH, which was done and is on the low side of normal, making hypothyroidism highly unlikely. She does not appear by clinical examination or vitals to be in thyroid storm. They do not feel that this represents a sequelae of her immunotherapy use, and unfortunately at this time I do not see any actionable findings to improve her symptoms. Additionally, given the patient's robust family supports, I do not see that this patient has an admission diagnosis and I feel that she could be safely managed at home while awaiting further outpatient workup by oncology. I have recommended that the family reach out to her outpatient providers to discuss next steps in workup and management, as well as potential referrals for home health to assist with medication, food and drink, etc. The patient and her family were counseled on return precautions, especially if her memory changes caused her to be unsafe in the home. At this time, the patient has had a full medical evaluation and is safe for discharge to home. They are hemodynamically stable, ambulatory, and tolerating PO. They are understanding of the follow-up plan and return precautions. They left our facility without incident. Adrienne Hilton MD Quality:SDOH Health Related Social Needs: Health related social needs food insecurity material hardship house/econ circumstance lonely/isolated PFSH All Active Problems (Updated 05/23/25 @ 16:11 by Adrienne Hilton MD) Memory changes (Acute) Small cell lung cancer (Acute) Right sided weakness (Acute ~01/2025) 02/02/25/ [facility] Hem/Onc Secondary malignant neoplasm of mediastinum (Acute) 01/19/25 [facility] Hem/Onc Secondary malignant neoplasm of brain (Acute) GERD (gastroesophageal reflux disease) (Chronic) Smoker (Acute) DVT prophylaxis (Acute) Brain mass (Acute) Lung nodule (Acute) Paroxysmal atrial fibrillation (Acute) Medical History (Updated 05/23/25 @ 16:11 by Adrienne Hilton MD) Hyperlipidemia Anxiety 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, negative MRI per patient Crohn disease states manages with silvestre, not active Surgical History (Updated 11/28/24 @ 23:34 by Tomas Gil) S/P lumpectomy, left breast fatty tumors per patient S/P tonsillectomy H/O section Family History (Updated 04/03/25 @ 14:03 by Roxana Cha) Sister Cancer Asthma Maternal Grandmother Esophageal cancer Paternal Grandfather Stomach cancer Nephew Alcohol use disorder Substance use disorder Depression Maternal Grandfather Heart disease Hypertension Maternal Aunt Diabetes Social History (Updated 04/03/25 @ 13:59 by Roxana Cha) Smoking/Tobacco Use Status: Current-Occasional Tobacco Type: cigarettes Tobacco: How many years used: 50 Quit status: considering quitting Second Hand Exposure: Yes Counseling given: provider counseling and counseling >3 minutes Smoking risk assessment performed?: Yes Alcohol Intake: never Drug use: Never Substance use type: does not use Caregiver/Support person: No Foster care: No Household members: none Housing: house Number of Children: 1 number of grandchildren: 3 Communication Needs: Hard of Hearing Education Level: high school Details: GED in 1986 Do you need help understanding health information?: Rarely current occupation: disabled Pets and animals: Yes (2 dogs) Sexually active: No Do you think of yourself as: straight/heterosexual Current gender identity: female What is your relationship status?: How often do you talk on the phone with friends or family?: three or more times per week How often do you get together with friends or relatives?: once per week Do you belong to any clubs or organized social groups?: no Panel score (0-1 are the most socially isolated patients): 1 What type of physical activity do you participate in: walking Duration: < 15 minutes/day Frequency: daily Ricarda/Pentecostal: Non restorationism Special ricarda needs: No Seatbelt use: always Helmet use: No Drive 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 in 2023.
[2025-05-23 13:04] LABS: Abs Immature Grans 0.04 10^3/uL (0.0-0.06); HCT 40.2 % (36.0-46.0); HGB 13.1 g/dL (11.2-15.7); Immature Grans % 0.3 %; MCH 30.5 pg (27.0-33.0); MCHC 32.6 % (32.0-36.0); MCV 94 fL (80-95); MPV 10.7 fL (8.0-11.0); Platelet Count 218 10^3/uL (130-400); RBC 4.29 10^6/uL (3.93-5.22); RDW 15.6 % (11.7-14.6); RDW-SD 53.9 fL; WBC 13.94 10^3/uL (4.4-10.8)
[2025-05-23 13:21] LABS: ALT 17 U/L (14-59); AST 11 U/L (15-37); Albumin 4.4 g/dL (3.4-5.0); Alkaline Phosphatase 83 U/L (46-116); Anion Gap 11.7 mmol/L (3-11); BUN 21 mg/dL (7-18); Bilirubin, Total 0.7 mg/dL (0.2-1.0); CO2 27.3 mmol/L (21.0-32.0); Calcium 10.3 mg/dL (8.5-10.1); Chloride 105 mmol/L (98-107); Estimated GFR 70.51 (mL/min/1.73m2); Glucose 169 mg/dL (74-106); Lipase 19 U/L (<78); Magnesium 2.2 mg/dL (1.8-2.4); Potassium 3.7 mmol/L (3.5-5.1); Sodium 144 mmol/L (136-145); Total Protein 7.4 g/dL (6.4-8.2); Troponin I 16 ng/L (<or=51)
[2025-05-23] MEDS: Normal Saline - Diluent 50 ML VIAL IJ (13:23)
[2025-05-23] MEDS: Omnipaque 350 MG/ML 100 ML BTL IJ (13:24)
[2025-05-23 14:09] LABS: Troponin I 17 ng/L (<or=51)
[2025-05-23 14:34] LABS: Glucose Negative (Negative)
[2025-05-23 14:41] LABS: RBC 0-2 HPF (0-2)
[2025-05-23] MEDS: Metoprolol 12.5 MG TAB PO (15:16)
--- NOTE | 2025-05-23 15:24 | DI.VRAD_ITS ---
PROCEDURE INFORMATION: Exam: CT Head With Contrast Exam date and time: 05/23/2025 1:21 PM Age: 64 years old Clinical indication: Other: Memory issues, RT hand numbness, HX of metastatic CA. TECHNIQUE: Imaging protocol: Computed tomography of the head with intravenous contrast. Radiation optimization: All CT scans at this facility use at least one of these dose optimization techniques: automated exposure control; mA and/or kV adjustment per patient size (includes targeted exams where dose is matched to clinical indication); or iterative reconstruction. Contrast material: OMNIPAQUE 350; Contrast volume: 100 ml; Contrast route: INTRAVENOUS (IV); COMPARISON: MR BRAIN WO/W 02/02/2025 12:22 PM FINDINGS: Brain: Mild, age-appropriate cortical volume loss. No evidence for abnormal enhancement. At the left cerebellar pontine angle series 9, image 37 there is some subtle gliosis. Unremarkable white matter. No mass effect. Cerebral ventricles: Unremarkable. No ventriculomegaly. Bones/joints: Unremarkable. No acute fracture. Paranasal sinuses: Visualized sinuses are unremarkable. No fluid levels. Mastoid air cells: Visualized mastoid air cells are well aerated. Soft tissues: Unremarkable. IMPRESSION: No evidence for acute intracranial abnormality. Dictated and Authenticated by: Vandana Huertas MD. Orderin St. Kelvin Deleon MD
[2025-05-23 15:34] LABS: Lab Add On Test DONE
[2025-05-23 16:03] LABS: TSH (W/Ref FT4) 0.30 uIU/mL (0.36-3.74)
== END 2025-05-23 16:18 | disposition home or self-care (01) ==
PROVIDERS: Emergency Provider Emergency Medicine; PCP Family Medicine
DX: R41.82 Altered mental status, unspecified (principal); E78.5 Hyperlipidemia, unspecified; C34.90 Malignant neoplasm of unspecified part of unspecified bronchus or lung; C78.1 Secondary malignant neoplasm of mediastinum; C79.31 Secondary malignant neoplasm of brain; F17.210 Nicotine dependence, cigarettes, uncomplicated; Z79.01 Long term (current) use of anticoagulants
CPT/HCPCS: 36415; 80053; 82962; 83690; 96360; 96361; 99285; 70460; 81003; 81015; 83735; 84439; 84443; 84484; 85025; 99284; J3490

== ENCOUNTER 2025-06-02 03:00 | Outpatient (CLI) | payer MEDICARE, SELFPAY ==
[2025-06-02 08:14] LABS: Abs Immature Grans 0.02 10^3/uL (0.0-0.06); HCT 37.7 % (36.0-46.0); HGB 12.1 g/dL (11.2-15.7); Immature Grans % 0.2 %; MCH 30.3 pg (27.0-33.0); MCHC 32.1 % (32.0-36.0); MCV 94 fL (80-95); MPV 9.8 fL (8.0-11.0); Platelet Count 183 10^3/uL (130-400); RBC 4.00 10^6/uL (3.93-5.22); RDW 14.7 % (11.7-14.6); RDW-SD 51.2 fL; WBC 8.99 10^3/uL (4.4-10.8)
[2025-06-02 08:37] LABS: ALT 28 U/L (14-59); AST 16 U/L (15-37); Albumin 3.4 g/dL (3.4-5.0); Alkaline Phosphatase 77 U/L (46-116); Anion Gap 9.7 mmol/L (3-11); BUN 9 mg/dL (7-18); Bilirubin, Total 0.3 mg/dL (0.2-1.0); CO2 26.3 mmol/L (21.0-32.0); Calcium 9.5 mg/dL (8.5-10.1); Chloride 108 mmol/L (98-107); Estimated GFR 70.51 (mL/min/1.73m2); Glucose 131 mg/dL (74-106); Magnesium 1.9 mg/dL (1.8-2.4); Potassium 3.6 mmol/L (3.5-5.1); Sodium 144 mmol/L (136-145); TSH 1.10 uIU/mL (0.36-3.74); Total Protein 6.1 g/dL (6.4-8.2)
== END 2025-06-02 03:01 | disposition home or self-care (01) ==
LOC: LBO 03:00
PROVIDERS: PCP Family Medicine; Visit Provider Nurse Practitioner Family
DX: Z79.899 Other long term (current) drug therapy (principal); C76.1 Malignant neoplasm of thorax; C79.31 Secondary malignant neoplasm of brain
CPT/HCPCS: 36415; 80053; 83735; 84439; 84443; 85025

== ENCOUNTER 2025-06-29 04:16 | Outpatient (CLI) | payer MEDICARE, SELFPAY ==
[2025-06-29 09:26] LABS: Abs Immature Grans 0.02 10^3/uL (0.0-0.06); HCT 38.7 % (36.0-46.0); HGB 12.3 g/dL (11.2-15.7); Immature Grans % 0.3 %; MCH 29.8 pg (27.0-33.0); MCHC 31.8 % (32.0-36.0); MCV 94 fL (80-95); MPV 9.7 fL (8.0-11.0); Platelet Count 244 10^3/uL (130-400); RBC 4.13 10^6/uL (3.93-5.22); RDW 14.0 % (11.7-14.6); RDW-SD 48.1 fL; WBC 7.19 10^3/uL (4.4-10.8)
[2025-06-29 10:08] LABS: ALT 36 U/L (14-59); AST 20 U/L (15-37); Albumin 3.5 g/dL (3.4-5.0); Alkaline Phosphatase 76 U/L (46-116); Anion Gap 9.1 mmol/L (3-11); BUN 10 mg/dL (7-18); Bilirubin, Total 0.4 mg/dL (0.2-1.0); CO2 29.9 mmol/L (21.0-32.0); Calcium 9.5 mg/dL (8.5-10.1); Chloride 104 mmol/L (98-107); Estimated GFR 55.42 (mL/min/1.73m2); Glucose 105 mg/dL (74-106); Magnesium 1.9 mg/dL (1.8-2.4); Potassium 3.6 mmol/L (3.5-5.1); Sodium 143 mmol/L (136-145); TSH 0.87 uIU/mL (0.36-3.74); Total Protein 6.4 g/dL (6.4-8.2)
== END 2025-06-29 04:17 | disposition home or self-care (01) ==
LOC: LBO 04:16
PROVIDERS: PCP Family Medicine; Visit Provider Nurse Practitioner Family
DX: Z79.899 Other long term (current) drug therapy (principal); C79.31 Secondary malignant neoplasm of brain; C78.1 Secondary malignant neoplasm of mediastinum
CPT/HCPCS: 36415; 80053; 83735; 84439; 84443; 85025